=== PATIENT | female | born 1950 | race Caucasian/White ===

== ENCOUNTER 2017-04-08 14:05 | Inpatient (IN) | payer OTHER ==
[~2017-04-08] VITALS: Ht 160 cm; Wt 58.9 kg
[~2017-04-08 14:05] MED LIST: ACET-1311 PO; MEPERIDINE PO; PRED-301 PO; SULF800T23 PO
--- NOTE | 2017-04-08 14:59 | EMERGENCY ROOM VISIT NOTE ---
History Report prepared by Lenin: Opal Ruiz Under the Supervision of: Dr. Keyanna Sandra D.O. First contact with patient: 14:19 Chief Complaint: OTHER COMPLAINT Stated Complaint: PAIN,WEAKNESS,MS,CR CANCER,UNABLE TO EAT History of Present Illness The patient is a 66 year old female who presents to the Emergency Room with complaints of worsening weakness. She reports she has a history of MS and colorectal cancer for the past 2 years ago. She is not currently being treated for the cancer because she states she cannot take chemotherapy because of her history of MS. She states her bowel movements are "messy" and she cannot control her bowels. She has a Wagner catheter in place due to recent issues with incontinence. The patient reports she has been experiencing abdominal and buttock pain recently but states she cannot take PO medications. She admits she has been self-medicating with alcohol. She also complains of a poor appetite and states "it's too hard to swallow". Her reports she was seen at [facility] about 2 months ago and was treated with IV Cipro. The patient is a current smoker. She denies any recent fevers, shortness of breath, chest pain, nausea or vomiting. 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 A total of 10 systems reviewed and were otherwise negative. Past Medical & Surgical Medical Problems: (1) Abdominal pain (2) Colorectal cancer (3) Multiple sclerosis Social History Smoking Status: Current Every Day Smoker Alcohol Use: heavy Drug Use: none Marital Status: Housing Status: lives with family Occupation Status: retired Current/Historical Medications Scheduled Prednisone (Prednisone), 20 MG PO DAILY Sulfa/Trimethoprim (Bactrim Ds 800MG/160MG), 1 TAB PO DAILY Allergies Coded Allergies: Codeine (Verified Allergy, Severe, SWELLING, DIFFICULTY SWALLOWING, ) Milk (Verified Allergy, Severe, CONGESTION,EYE SWELLING, DIFFICULTY SWALLOWING, 04/08/17) Iodinated Diagnostic Agents (Verified Allergy, Intermediate, RASH, ) Iodine (Verified Allergy, Intermediate, RASH, 04/09/17) Penicillins (Verified Allergy, Unknown, UNKNOWN, 04/08/17) Physical Exam Vital Signs Date Time Temp Pulse Resp B/P (MAP) Pulse Ox O2 Delivery O2 Flow Rate FiO2 04/08/17 17:21 125 20 95 Nasal Cannula 2.0 04/08/17 16:42 100 20 95 Room Air 04/08/17 16:35 71 20 130/74 94 Room Air 04/08/17 15:22 94 20 130/65 90 Room Air 04/08/17 15:17 87 04/08/17 14:08 36.4 92 18 124/77 90 Room Air Physical Exam GENERAL: Patient is alert, chronically ill-appearing, smells of ETOH, well nourished, no distress, non-toxic EYE EXAM: normal conjunctiva, PERRL and EOM's grossly intact OROPHARYNX: no exudate, no erythema, lips, buccal mucosa normal, staining on tongue from smoking, poor dentition and mucous membranes are dry NECK: supple, no nuchal rigidity, no adenopathy, non-tender LUNGS: Diminished breath sounds. No wheezes, rhonchi or rails. Normal chest wall mechanics HEART: no murmurs, S1 normal and S2 normal : Patient in adult diaper. Indwelling Wagner catheter noted, no hematuria, cloudy urine with mild sediment. ABDOMEN: abdomen soft, non-tender, normo-active bowel sounds, no masses, no rebound or guarding. BACK: Back is symmetrical on inspection and there is no deformity, no midline tenderness, no CVA tenderness. SKIN: Multiple areas of excoriation noted, no rashes and no bruising UPPER EXTREMITIES: upper extremities are grossly normal. LOWER EXTREMITIES: No pitting edema. NEURO EXAM: Normal sensorium, cranial nerves II-XII grossly intact, normal speech, no gross weakness of arms, no gross weakness of legs. Medical Decision & Procedures ER Provider Diagnostic Interpretation: Radiology results have been interpreted by the radiologist and reviewed by me. ABDOMEN AND PELVIS CT WITHOUT CONTRAST CT DOSE: 263.40 mGy.cm HISTORY: Lower abdominal pain. TECHNIQUE: Multiaxial CT images of the abdomen and pelvis were performed without contrast. A dose lowering technique was utilized adhering to the principles of ALARA. COMPARISON STUDY: None. FINDINGS: The lung bases are clear. No pneumoperitoneum. No pneumatosis. L4-5 posterior decompression and fusion with pedicle screws and rods. No suspicious lytic or blastic osseous lesions. Punctate density within the left hepatic lobe which may represent a small calcification. Hepatic steatosis with an area of focal fat adjacent to the whitney hepatis. Multiple small gallstones and gallbladder sludge. The unenhanced spleen, pancreas, and kidneys are unremarkable. Thickening within the body of the stomach is likely due to underdistention. No retroperitoneal lymphadenopathy. There is a Wagner catheter within the bladder. Small focus of gas within the bladder is likely due to the catheterization. Partially calcified 6.2 cm homogeneous mass within the uterine fundus. This favors a fibroid. Moderate thickening of the rectum with perirectal fat stranding. There are few subcentimeter perirectal lymph nodes. There is also areas of abnormal soft tissue seen extending from the upper vagina to the perirectal space bilaterally. These are best seen on images 69 and 70 and favor engorged vascular structures from the adjacent inflammatory change. Moderate stool seen within the colon. No evidence for bowel obstruction. Normal appendix. An indeterminate 1.5 cm left adrenal gland nodule. Normal right adrenal gland. IMPRESSION: 1. Moderate rectal wall thickening with perirectal fat stranding. This consistent with a nonspecific proctitis. However, given the patient's age follow-up sigmoidoscopy is recommended to exclude the possibility of an underlying rectal mass. There are few subcentimeter perirectal lymph nodes which are nonspecific. 2. No evidence for bowel obstruction. 3. Cholelithiasis. 4. A 6.2 cm partially calcified mass within the uterine fundus. This likely represents a fibroid. 5. Normal appendix. 6. Hepatic steatosis. Electronically signed by: Colten Aceves M.D. 04/08/2017 4:07 PM CHEST ONE VIEW PORTABLE HISTORY: Weakness. Short of breath. COMPARISON: None. FINDINGS: The heart is borderline enlarged. Mild diffuse interstitial thickening which may be chronic. Surgical within the right axilla. No focal lung consolidations to suggest pneumonia. No pleural effusions. No pneumothorax. The lungs are mildly hyperexpanded. IMPRESSION: Mild diffuse interstitial thickening which is likely chronic. No focal lung consolidations to suggest pneumonia. Electronically signed by: Colten Aceves M.D. 04/08/2017 4:24 PM Laboratory Results Test 04/08/17 15:19 Prothrombin Time 9.4 SECONDS (9.0-12.0) Prothromb Time International Ratio 0.9 (0.9-1.1) Lactic Acid Level 1.8 mmol/L (0.4-2.0) Ethyl Alcohol mg/dL 257.0 mg/dl (0-3) Date/Time Source Procedure Growth Status 04/08/17 16:15 Urine,Catheterized Urine Culture - Final THREE TYPES OF ORGANISMS PRESENT, ALL... Complete Laboratory results per my review. Medications Administered Medications (Trade) Dose Ordered Sig/Jacqui Route Start Time Stop Time Status Last Admin Dose Admin Sodium Chloride 1,000 ml @ 999 mls/hr Q1H1M STAT IV 04/08/17 16:11 04/08/17 17:11 DC 04/08/17 16:24 999 MLS/HR Multivitamins 10 ml/Thiamine HCl 100 mg/Folic Acid 1 mg/Sodium Chloride 1,011.2 ml @ 125 mls/ hr Q8H6M IV 04/08/17 17:00 04/08/17 19:41 DC 04/08/17 17:19 125 MLS/HR Nicotine (Nicoderm Cq 21MG Patch) 1 patch STK-MED ONCE .ROUTE 04/08/17 16:51 04/08/17 16:52 DC 04/08/17 17:03 1 PATCH Sodium Chloride 1,000 ml @ 100 mls/hr Q10H IV 04/08/17 17:35 05/08/17 17:34 04/10/17 06:52 100 MLS/HR ECG Indication: weakness Rate (beats per minute): 90 Rhythm: normal sinus Findings: no ectopy, other (normal intervals) ED Course 1446: The patient was evaluated in room A2. A complete history and physical exam was performed. 1611: NSS 1000 ml @ 999 mls/hr IV. 1643: I discussed the patients case with Dr. Sherman, [facility] Hospitalist. The patient will be further evaluated. 1650: I reevaluated the patient. She is resting comfortably. I discussed my recommendation she remain in the hospital for further evaluation and management and she and her family verbalized complete understanding and agreement. 1651: Nicotine 21 mg 1 patch TD. 1700: Multivitamin 1011.2 ml @ 125 mls/hr IV. 0900: Nicotine 21 mg 1 patch TD. Medical Decision Differential Diagnosis includes but is not limited to dehydration, stroke, anemia, hypoglycemia, hyponatremia, hypernatremia, urinary tract infection, pneumonia, bronchitis, sepsis, gastroenteritis, additional abdominal pathology, metabolic abnormalities and infections. Pt with multiple medical problems, noncompliance, alcohol abuse who has previously refused treatment for her colorectal ca stating it would flare up her MS, but family states no second opinion ever sought. VS stable. Abnormal LFT"s and pancreatitis likely from etoh. No evidence of acute abdominal/pelvic pathology given worsening pain. Likely progression of disease. Doubt bacteremia/sepsis, doubt acute vascular etiology. No evidence of sbo, perf. Wagner catheter changed 03/24/17. Culture sent as a precaution. Medication Reconcilliation Current Medication List: was personally reviewed by me Blood Pressure Screening Patient's blood pressure: Normal blood pressure Blood pressure disposition: Did not require urgent referral Consults Time Called: 1640 Consulting Physician: Dr. Sherman, [facility] Hospitalist Returned Call: [phone] I discussed the patients case with Dr. Sherman [facility] Hospitalist. The patient will be further evaluated. Impression Primary Impression: Alcohol intoxication Additional Impressions: Pancreatitis Abnormal LFTs Colorectal cancer Failure to thrive Scribe Attestation The scribe's documentation has been prepared under my direction and personally reviewed by me in its entirety. I confirm that the note above accurately reflects all work, treatment, procedures, and medical decision making performed by me. Departure Information Dispostion Being Evaluated By Hospitalist Referrals Matt Self M.D. (PCP) Patient Instructions My [facility] Problem Qualifiers Primary Impression: Alcohol intoxication Complication of substance-induced condition: uncomplicated Qualified Codes: F10.920 - Alcohol use, unspecified with intoxication, uncomplicated Additional Impressions: Pancreatitis Chronicity: acute Pancreatitis type: alcohol induced Acute pancreatitis complication: no infection or necrosis Qualified Codes: K85.20 - Alcohol induced acute pancreatitis without necrosis or infection Failure to thrive Failure to thrive age range: in adult Qualified Codes: R62.7 - Adult failure to thrive
[2017-04-08 15:32] LABS: BASO % 0.7 %; BASO ABS # 0.05 K/uL (0-0.2); EOS % 0.1 %; EOS ABS # 0.01 K/uL (0-0.5); HEMATOCRIT 34.7 % (37-47); HEMOGLOBIN 11.8 g/dL (12.0-16.0); IG# 0.03 K/uL (0.00-0.02); LYMPH % 5.4 %; LYMPH ABS # 0.41 K/uL (1.2-3.4); MEAN CORPUSCULAR HEMOGLOBIN 33.3 pg (25-34); MONO % 1.6 %; MONO ABS # 0.12 K/uL (0.11-0.59); NEUT % 91.8 %; NEUT ABS # 6.93 K/uL (1.4-6.5); PLATELET COUNT 177 K/uL (130-400); RED CELL DISTRIBUTION WIDTH CV 14.7 % (11.5-14.5); RED CELL DISTRIBUTION WIDTH SD 52.2 fL (36.4-46.3); WHITE BLOOD COUNT 7.55 K/uL (4.8-10.8)
[2017-04-08 15:41] LABS: INR 0.9 (0.9-1.1)
[2017-04-08 15:50] LABS: ALBUMIN 2.9 gm/dl (3.4-5.0); CALCIUM 8.3 mg/dl (8.5-10.1); CREATININE 0.27 mg/dl (0.60-1.20); POTASSIUM 3.3 mmol/L (3.5-5.1)
[2017-04-08 15:52] LABS: TOTAL PROTEIN 6.2 gm/dl (6.4-8.2)
--- NOTE | 2017-04-08 16:08 | DIAGNOSTIC IMAGING REPORT ---
ABDOMEN AND PELVIS CT WITHOUT CONTRAST CT DOSE: 263.40 mGy.cm HISTORY: Lower abdominal pain. TECHNIQUE: Multiaxial CT images of the abdomen and pelvis were performed without contrast. A dose lowering technique was utilized adhering to the principles of ALARA. COMPARISON STUDY: None. FINDINGS: The lung bases are clear. No pneumoperitoneum. No pneumatosis. L4-5 posterior decompression and fusion with pedicle screws and rods. No suspicious lytic or blastic osseous lesions. Punctate density within the left hepatic lobe which may represent a small calcification. Hepatic steatosis with an area of focal fat adjacent to the whitney hepatis. Multiple small gallstones and gallbladder sludge. The unenhanced spleen, pancreas, and kidneys are unremarkable. Thickening within the body of the stomach is likely due to underdistention. No retroperitoneal lymphadenopathy. There is a Wagner catheter within the bladder. Small focus of gas within the bladder is likely due to the catheterization. Partially calcified 6.2 cm homogeneous mass within the uterine fundus. This favors a fibroid. Moderate thickening of the rectum with perirectal fat stranding. There are few subcentimeter perirectal lymph nodes. There is also areas of abnormal soft tissue seen extending from the upper vagina to the perirectal space bilaterally. These are best seen on images 69 and 70 and favor engorged vascular structures from the adjacent inflammatory change. Moderate stool seen within the colon. No evidence for bowel obstruction. Normal appendix. An indeterminate 1.5 cm left adrenal gland nodule. Normal right adrenal gland. IMPRESSION: 1. Moderate rectal wall thickening with perirectal fat stranding. This consistent with a nonspecific proctitis. However, given the patient's age follow-up sigmoidoscopy is recommended to exclude the possibility of an underlying rectal mass. There are few subcentimeter perirectal lymph nodes which are nonspecific. 2. No evidence for bowel obstruction. 3. Cholelithiasis. 4. A 6.2 cm partially calcified mass within the uterine fundus. This likely represents a fibroid. 5. Normal appendix. 6. Hepatic steatosis. Electronically signed by: Colten Aceves M.D. 04/08/2017 4:07 PM Dictated Date/Time: 04/08/2017 3:55 PM
[2017-04-08] MEDS ORDERED: SODIUM CHLORIDE 0.9% 1000ML 1,000 ML IV STA (16:11)
--- NOTE | 2017-04-08 16:26 | DIAGNOSTIC IMAGING REPORT ---
CHEST ONE VIEW PORTABLE HISTORY: Weakness. Short of breath. COMPARISON: None. FINDINGS: The heart is borderline enlarged. Mild diffuse interstitial thickening which may be chronic. Surgical within the right axilla. No focal lung consolidations to suggest pneumonia. No pleural effusions. No pneumothorax. The lungs are mildly hyperexpanded. IMPRESSION: Mild diffuse interstitial thickening which is likely chronic. No focal lung consolidations to suggest pneumonia. Electronically signed by: Colten Aceves M.D. 04/08/2017 4:24 PM Dictated Date/Time: 04/08/2017 4:23 PM
[2017-04-08] MEDS ORDERED: NICOTINE 21 MG/24 HR TDSY ONE (16:51)
[2017-04-08] MEDS ORDERED: MULTI-VITAMIN INFUSION INJ 10 ML, THIAMINE HCL INJ 100 MG, FoLIC ACID INJ 1 MG in SODIU... IV SCH (17:00)
[2017-04-08] MEDS ORDERED: POLYETHYLENE (MIRALAX) 17 GM PACK PO PRN (17:45)
[2017-04-08] MEDS ORDERED: LORAZEPAM 2 MG/ML 1 ML VIAL IV PRN ×2 (17:45)
[2017-04-08] MEDS ORDERED: ALUMINUM/MAGNESIUM/SIMETH (MAALOX MAX) 30 ML UDC PO PRN (17:45)
[2017-04-08] MEDS ORDERED: MAGNESIUM HYDROXIDE SUSP 30 ML UDC PO PRN (17:45)
[2017-04-08] MEDS ORDERED: LORAZEPAM 1 MG TAB PO PRN (17:45)
[2017-04-08] MEDS ORDERED: CHLORDIAZEPOXIDE 25 MG CAP PO SCH (17:45)
[2017-04-08 18:05] VITALS: O2SAT 95; Ht 160 cm; Wt 58.9 kg
--- NOTE | 2017-04-08 18:05 | NUR ---
A/ID: 66 year old female in ED. c/o abdominal pain. lipase 671. LFTs elevated. Possible admission/observation. Admission Assessment done. Code Word/Fall Agreement reviewed with patient and completed. Spouse aware of admission. Continued care in ED by LEELEE Langley.
--- NOTE | 2017-04-08 18:38 | History and Physical ---
History & Physical Date & Time of Service: Apr 08, 2017 at 17:57 Chief Complaint: Pain,Weakness,Ms,Cr Cancer,Unable To Eat Primary Care Physician: Matt Self M.D. 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 progressive for the past few days. patient has been on hospice at home. her and her claimed that they did not know that hospice means not to treat the cancer. They had a miss communication with [facility] that was handling her rectal cancer (chemotherapy/radiation was suggested but patient wanted surgery). her and her now wants to pursu treating her cancer. they think that her lower abd pain is from it. because of her progressive chronic pain she started to drink alcohol every day. today her alcohol level is 257. she has recurrent UTI responding to cipro IV not oral. currently on Bactrim once a day for suppression. also has chronic diarrhea. tremors and currently smoker Social History Smoking Status: Current Every Day Smoker Drug Use: none Marital Status: Occupational Status: retired Immunizations History of Influenza Vaccine: N/A History of Tetanus Vaccine?: Yes History of Pneumococcal: No History of Hepatitis B Vaccine: No Allergies Coded Allergies: Codeine (Verified Allergy, Severe, SWELLING, DIFFICULTY SWALLOWING, ) Milk (Verified Allergy, Severe, CONGESTION,EYE SWELLING, DIFFICULTY SWALLOWING, 04/08/17) Iodine (Unverified Allergy, Intermediate, RASH, 04/08/17) Penicillins (Verified Allergy, Unknown, UNKNOWN, 04/08/17) Uncoded Allergies: CONTRASTMEDIA (Allergy, Intermediate, RASH, 05/22/09) Home Medications Scheduled Prednisone (Prednisone), 20 MG PO DAILY Sulfa/Trimethoprim (Bactrim Ds 800MG/160MG), 1 TAB PO DAILY Review of Systems Constitutional: + weakness, + fatigue, No fever, No chills, No sweats, No weight loss, No problem reported Eyes: No worsening of vision, No eye pain, No redness, No discharge, No diplopia, No problem reported ENT: No hearing loss, No unusual epistaxis, No nasal symptoms, No sore throat, No tinnitus, No dental problems, No trouble swallowing, No problem reported Respiratory: No cough, No sputum, No wheezing, No shortness of breath, No dyspnea on exertion, No dyspnea at rest, No hemoptysis, No problem reported Cardiovascular: No chest pain, No orthopnea, No PND, No edema, No claudication , No palpitations, No problem reported Abdomen: + pain, + diarrhea, No nausea, No vomiting, No constipation, No GI bleeding, No problem reported Musculoskeletal: + joint pain, + muscle pain, + calf pain, No swelling, No problem reported Genitourinary - Female: + problem reported (has a chronic overton), No dysuria, No urinary frequency, No urinary urgency, No urinary incontinence, No urinary retention, No hematuria, No dysmenorrhea, No menorrhagia, No metrorrhagia, No rash, No vaginal bleeding, No vaginal discharge, No vaginal itching, No vulvodynia, No Neurologic: + weakness, + problem reported (MS with lower ext weakness), No memory loss, No paralysis, No numbness/tingling, No vertigo, No balance problems Psychiatric: No depression symptoms, No anhedonism, No anxiety, No insomnia, No substance abuse, No problem reported Endocrine: No fatigue, No excessive thirst, No excessive urination, No problem reported Hematologic / Lymphatic: No abnormal bleeding/bruising, No clotting problems, No swollen lymph nodes, No night sweats, No problem reported Integumentary: + rash, No itch, No new/changing skin lesions, No color change, No bleeding, No problem reported Allergic / Immunologic: No environmental allergies, No seasonal allergies, No pet sensitivities, No food allergies, No hives, No frequent infections, No poor healing, No prolonged convalescence, No problem reported Physical Exam Vital Signs Date Time Temp Pulse Resp B/P (MAP) Pulse Ox O2 Delivery O2 Flow Rate FiO2 04/08/17 17:21 125 20 95 Nasal Cannula 2.0 04/08/17 16:42 100 20 95 Room Air 04/08/17 16:35 71 20 130/74 94 Room Air 04/08/17 15:22 94 20 130/65 90 Room Air 04/08/17 15:17 87 04/08/17 14:08 36.4 92 18 124/77 90 Room Air General Appearance: + mild distress Head: normocephalic, atraumatic Eyes: normal inspection, EOMI ENT: normal ENT inspection, hearing grossly normal Neck: supple Respiratory/Chest: chest non-tender, lungs clear, normal breath sounds, no respiratory distress, no accessory muscle use Cardiovascular: regular rate, rhythm, no edema, no gallop, no JVD, no murmur, normal peripheral pulses Abdomen/GI: normal bowel sounds, soft, no organomegaly, no pulsatile mass, + tenderness Back: normal inspection Extremities/Musculoskelatal: no pedal edema, + pertinent finding (muscle waisting in lower ext) 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: 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, no motor/sensory deficits, alert, normal mood/affect, normal reflexes, oriented x 3 Skin: normal color, + rash (itching markers) Diagnostics Laboratory Results Results Past 24 Hours Test 04/08/17 15:19 04/08/17 17:35 Range/Units White Blood Count 7.55 4.8-10.8 K/uL Red Blood Count 3.54 4.2-5.4 M/uL Hemoglobin 11.8 12.0-16.0 g/dL Hematocrit 34.7 37-47 % Mean Corpuscular Volume 98.0 80-100 fL Mean Corpuscular Hemoglobin 33.3 25-34 pg Mean Corpuscular Hemoglobin Concent 34.0 32-36 g/dl Platelet Count 177 130-400 K/uL Mean Platelet Volume 9.0 7.4-10.4 fL Neutrophils (%) (Auto) 91.8 % Lymphocytes (%) (Auto) 5.4 % Monocytes (%) (Auto) 1.6 % Eosinophils (%) (Auto) 0.1 % Basophils (%) (Auto) 0.7 % Neutrophils # (Auto) 6.93 1.4-6.5 K/uL Lymphocytes # (Auto) 0.41 1.2-3.4 K/uL Monocytes # (Auto) 0.12 0.11-0.59 K/uL Eosinophils # (Auto) 0.01 0-0.5 K/uL Basophils # (Auto) 0.05 0-0.2 K/uL RDW Standard Deviation 52.2 36.4-46.3 fL RDW Coefficient of Variation 14.7 11.5-14.5 % Immature Granulocyte % (Auto) 0.4 % Immature Granulocyte # (Auto) 0.03 0.00-0.02 K/uL Prothrombin Time 9.4 9.0-12.0 SECONDS Prothromb Time International Ratio 0.9 0.9-1.1 Sodium Level 132 136-145 mmol/L Potassium Level 3.3 3.5-5.1 mmol/L Chloride Level 98 98-107 mmol/L Carbon Dioxide Level 27 21-32 mmol/L Anion Gap 7.0 3-11 mmol/L Blood Urea Nitrogen 6 7-18 mg/dl Creatinine 0.27 0.60-1.20 mg/dl Est Creatinine Clear Calc Drug Dose 164.9 ml/min Estimated GFR () 141.2 Estimated GFR (Non- 121.8 BUN/Creatinine Ratio 23.5 10-20 Random Glucose 91 70-99 mg/dl Lactic Acid Level 1.8 0.4-2.0 mmol/L Calcium Level 8.3 8.5-10.1 mg/dl Magnesium Level 2.0 1.8-2.4 mg/dl Total Bilirubin 0.6 0.2-1 mg/dl Aspartate Amino Transf (AST/SGOT) 177 15-37 U/L Alanine Aminotransferase (ALT/SGPT) 145 12-78 U/L Alkaline Phosphatase 143 45-117 U/L Total Protein 6.2 6.4-8.2 gm/dl Albumin 2.9 3.4-5.0 gm/dl Globulin 3.3 2.5-4.0 gm/dl Albumin/Globulin Ratio 0.9 0.9-2 Lipase 671 73-393 U/L Ethyl Alcohol mg/dL 257.0 0-3 mg/dl Microbiology Results 04/08/17 Urine Culture, Received Pending Impression Assessment and Plan 66 years old female with MS, lower back pain, 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 Assessment: lower abdominal pain,likely related to her untreated rectal cancer alcoholic hepatitis elevated lipase, likely alcoholic chronic pancreatitis, no acute epigastric pain Chronic diarrhea, likely combination of rectal cancer/chronic pancreatitis and pancreatic insufficiency alcohol abuse chronic pain advanced MS on chronic prednisone bladder retention S/P indwelling overton catheter recurrent complicated UTI on chronic bactrim suppression Plan: Admit to telemetry pain management Banana bag Alcohol withdrawal protocol Ativan when necessary Recheck liver enzymes/diabetes in a.m. Obtain stool study, including, culture and sensitivity, ova and parasite, Giardia, cryptosporidium, microsporidia, white blood cell, and Hemoccults As per patient wishes, will consult GI to initiate workup and management for her rectal cancer, patient is willing to pursue treating rectal cancer, As per , they did not know that hospice means not treating the cancer, if hospice means no treatment for the cancer then they will provoke hospice Oncologist can be consulted on Monday when the patient is stabilized Despite of chronic alcohol use, platelet count is adequate to initiate pharmacologic DVT prophylaxis Consult PT/OT, despite of MS patient used to be able to use a walker until 3 weeks ago Urine analysis was sent, no fever no leukocytosis no stigmata of UTI, some white blood cell count in urine is expected from chronic Overton but if it was highly suspicious for infection then it might explain the lower abdominal pain Resuscitation Status DO NOT RESUSCITATE VTE Prophylaxis VTE Risk Assessment Done? Y/N: Yes Risk Level: Moderate Given or contraindicated: Enoxaparin (Lovenox)SQ
[2017-04-08 19:44] VITALS: BP 181/69; PULSE 100; TEMP 36.5; O2SAT 94
--- NOTE | 2017-04-08 20:00 | NUR ---
A: Arrived to room 278-2 from the ED at 1940. Assessed and oriented to the room. quality assurance monitor chassis applied. Monitor shows sinus rhythm. Bed alarm placed on bed. Incontinent of stool. Cleansed and moisture barrier ointment applied. Right buttock excoriated. Also multiple scabs on abdomen and legs especially left leg. Will place consult to [facility]. Tremors noted.
[2017-04-08] MEDS: CHLORDIAZEPOXIDE 25MG 1ST DOSE PO SCH (20:04)
[2017-04-08] MEDS: OXYCODONE HCL IR 5 MG TAB (IMMEDIATE RELEASE) PO PRN (20:05)
[2017-04-08] MEDS ORDERED: MULTI-VITAMIN INFUSION INJ 10 ML, THIAMINE HCL INJ 100 MG, FoLIC ACID INJ 1 MG in SODIU... IV ONE (20:30)
[2017-04-08 20:48] VITALS: BP 155/77; PULSE 89
[2017-04-08] MEDS: ENOXAPARIN 40 MG/0.4 ML SYR SC SCH (20:49)
[2017-04-08] MEDS: SODIUM CHLORIDE 0.9% 1000ML 1,000 ML IV SCH (20:50)
[2017-04-08] MEDS: LORAZEPAM INJ 1 MG in SYRINGE 0.5 ML IV PRN (23:40)
[2017-04-08 23:47] VITALS: BP 148/73; PULSE 92; TEMP 36.6; O2SAT 94
--- NOTE | 2017-04-08 23:50 | NUR ---
A: Physician made aware of AWSS scale of 7 per eMAR order. Per Dr. Werner reassess AWSS in an hour, may administer additional Ativan 1mg IV if score > 6. Patient has scattered circular covington/wounds on her abdomen and upper thigh, MD made aware, patient is a current everyday smoker.
[2017-04-09] VITALS (7 sets, daily range): BP systolic 109–160; BP diastolic 67–84; PULSE 83–98; TEMP 36.4–36.8; O2SAT 91–100
--- NOTE | 2017-04-09 | NUR ---
A: Patient resting in bed. Intermittent confusion. Reoriented easily. Moderate Bilateral arm tremors noted. Moderate perspiration noted. Patient states her last drink was this morning, she drinks beer on a daily basis to treat her pain. She notes that she has chronic rectal pain but declines medication at this time. Wagner catheter patient draining concentrated yellow. Incontinent of stool. Stool sample collected. VSS on 2L [place]. NSR on monitor. See EMR for full assessment. Bed alarm in place for safety HS. Q1 hour rounding maintained. Call wynn within reach. Will continue to monitor.
[2017-04-09] MEDS: CHLORDIAZEPOXIDE 25MG 1ST DOSE PO SCH ×3 (01:32→14:16)
--- NOTE | 2017-04-09 04:00 | NUR ---
A: Patient remains resting in bed. No signs of anxiety at this time. Int. confusion continues. B/L arm tremors have improved. C/O getting hot and cold. Denies hallucinations. VSS on 2L. NSR on monitor. Call wynn within reach.
[2017-04-09 05:41] LABS: BASO % 0.3 %; BASO ABS # 0.03 K/uL (0-0.2); HEMATOCRIT 33.2 % (37-47); HEMOGLOBIN 10.9 g/dL (12.0-16.0); IG# 0.02 K/uL (0.00-0.02); LYMPH % 5.5 %; LYMPH ABS # 0.54 K/uL (1.2-3.4); MEAN CORPUSCULAR HEMOGLOBIN 32.8 pg (25-34); MEAN CORPUSCULAR HGB CONC 32.8 g/dl (32-36); MEAN PLATELET VOLUME 9.3 fL (7.4-10.4); MONO % 8.1 %; MONO ABS # 0.79 K/uL (0.11-0.59); NEUT % 85.9 %; NEUT ABS # 8.42 K/uL (1.4-6.5); PLATELET COUNT 175 K/uL (130-400); RED CELL DISTRIBUTION WIDTH CV 15.1 % (11.5-14.5); RED CELL DISTRIBUTION WIDTH SD 54.5 fL (36.4-46.3)
[2017-04-09 06:21] LABS: ALBUMIN 2.5 gm/dl (3.4-5.0); ALT/SGPT 112 U/L (12-78); AST/SGOT 112 U/L (15-37); BLOOD UREA NITROGEN 5 mg/dl (7-18); CARBON DIOXIDE 25 mmol/L (21-32); CREATININE 0.19 mg/dl (0.60-1.20); GLUCOSE 77 mg/dl (70-99); LIPASE 313 U/L (73-393); POTASSIUM 2.9 mmol/L (3.5-5.1); SODIUM 134 mmol/L (136-145)
[2017-04-09 06:24] LABS: ALKALINE PHOSPHATASE 136 U/L (45-117); TOTAL PROTEIN 5.5 gm/dl (6.4-8.2)
--- NOTE | 2017-04-09 07:21 | Family Medicine Progress Note ---
Progress Note Date of Service Apr 09, 2017. Subjective Pt evaluation today including: conversation w/ patient, physical exam, chart review, lab review The patient was seen and examined at bedside. No acute overnight events. Telemetry showed sinus rhythm in the 80s and 100s. Patient is resting comfortably in bed with overton in place. States that her abdominal pain is well controlled. Eating and urinating well. I spoke with the patient extensively about hospice care and what it entails - she confirms with me that she does not want surgery, radiation or chemotherapy for her cancer and does not want to speak with an oncologist. She denies SI or HI. Update: I returned to the room with the present. Hospice care was confirmed. Patient admits that when she leaves she will drink alcohol and would like a beer as inpatient. and both confirm that there was a path diagnosis for her cancer. Both confirm they do not want treatment for cancer. Plan of care was described to the patient and all questions were answered. Constitutional: No fever, No chills, No sweats Respiratory: No cough, No sputum, No wheezing, No shortness of breath Cardiovascular: No chest pain Abdomen: + diarrhea, No nausea, No vomiting, No constipation Skin: No rash Objective Physical Exam General Appearance: WD/WN Eyes: PERRL, EOMI ENT: + pertinent finding (black tongue with needlike projections) Neck: supple Respiratory/Chest: chest non-tender, lungs clear, normal breath sounds, no respiratory distress, no accessory muscle use Cardiovascular: regular rate, rhythm, no edema, no gallop, no JVD, no murmur Abdomen: normal bowel sounds, soft, + hepatomegaly (and tender in the RUQ to deep palpation) Extremities: normal range of motion, normal inspection, no pedal edema, no calf tenderness 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 She is on hospice but without services. Pain has resolved on current regimen. She is on Prednisone for MS, Bactrim (on chronically as outpatient). She confirmed her desired x 2 to be on hospice. present in the room. Abdominal Pain (resolved) 2/2 to ?cancer, constipation, UTI vs Proctitis (seen on CT) Pt is afebrile, with excellent heart rate and good pressures, not appearing septic. UA was dirty despite being taken from overton bag. Repeat UA. Urine could also be incredibly contaminated. 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 Has had 3 loose BM since admission. Oxycodone 5mg Q6H for pain control. Alcoholism Patient does not want to go through withdrawal, she admits that she will continue drinking in the hospital. 2 beers stat, 1 beer Q4 PRN for agitation. Colon Cancer (Hospice) Patient confirmed hospice status twice independently today. Patient does not want to be treated, has seen Dr. Monterroso in the past who she states confirmed the diagnosis with biopsy. She is on hospice but has no home service, this is a point of contention with patient and . Palliative care and discharge planning consult. Patient specifically declined an Oncology or GI consult. Chronic UTIs 2/2 Chronic Indwelling Overton Catheter. We need to find out when the overton was last changes. UA showed contaminate which is odd because it was drawn from the overton. She is on Bactrim at home which we are continuing. Will repeat UA. Consider Broadening Abx if symptoms worsen. Multiple Sclerosis Continue 20mg daily Prednisone. Patient used a walker up until 3 weeks ago. Dispo: Med Surg, lives with who has ESRD, apparently on home hospice but not getting any home services. Diet: Regular diet, supplement with Boost as patients liesure, she wants Gatorade as well. DVT Proph: Lovenox Daily SQ DNR - confirm this twice with patient, alone and with in the room. Resident Physician Supervision Note: I was present with PGY2 Dr. Colten Inman during the history and exam. I discussed the case with the resident and agree with the findings and plan as documented in the note. Any exceptions or clarifications are listed here: none. Pt confirmed during our bedside rounds the following - 1) DNR status 2) wishes to continue drinking alcohol 3) NO TREATMENT for her biopsy-confirmed rectal cancer Her abdominal pain was improved today. VSS no fever gen - shaky/tremors, but awake/alert/oriented x 3; looks older than stated age mouth - MMM heart - RRR, s1, s2 lungs - CTA b/l abd - mild hepatomegaly, BS+, soft, scantly tender RUQ ext - no edema A/P: 1. steroid-dependent MS with chronic overton catheter usage 2. rectal cancer - declines treatment 3. early but active etoh withdrawal 4. abdominal pain - improved; suspect due to cancer; cannot r/o UTI, cannot r/ o gastritis; lipase minimally elevated but doubt any pancreatitis 5. abnormal LFTs likely due to alcoholism 6. hypokalemia ativan prn allow beer prn given her repeated desire for hospice and desire to continue drinking etoh replete K PPI once daily formal palliative care consult on Monday dispo - home w/ hospice ok to place on med/surg Documented By: Darwin Yanez MD Resident Involvement: Resident Care Provided Care Provided: Adult Hospital Medicine
[2017-04-09] MEDS: SODIUM CHLORIDE 0.9% 1000ML 1,000 ML IV SCH ×3 (07:47→20:25)
[2017-04-09] MEDS: SULFAMETHOXAZOLE/TRIMETHOPRIM DS 800/160MG TAB PO SCH (07:47)
[2017-04-09] MEDS: LORAZEPAM INJ 1 MG in SYRINGE 0.5 ML IV PRN (07:52)
--- NOTE | 2017-04-09 08:00 | NUR ---
A: Patient alert and oriented x 4. Forgetful at times. No complaints of pain. sitting in chair. Tremors noted, restless, anxious. Dose of PRN ativan called for. notified of Low K level this AM. NSR on monitor. See EMR for full head to toe assessment. will continue to monitor.
[2017-04-09] MEDS ORDERED: POTASSIUM CHLORIDE 10 MEQ TABCR PO ONE (08:15)
[2017-04-09] MEDS: POTASSIUM CHLR 10 MEQ / WTR 10 MEQ in PREMIXED WATER 100 ML IV SCH ×2 (08:25→09:12)
[2017-04-09] MEDS ORDERED: NICOTINE 21 MG/24 HR TDSY TD SCH (09:00)
[2017-04-09] MEDS: POTASSIUM CHLORIDE 10 MEQ TABCR PO SCH ×2 (11:44→20:48)
--- NOTE | 2017-04-09 12:00 | NUR ---
A: Assessment unchanged. See EMR.
--- NOTE | 2017-04-09 12:17 | NUR ---
RD received WOCN notification and trigger for difficulty chewing/swallowing, refer to linked note for full assessment and recommendations. Addendum: 04/09/17 at [address] Amended: Links added. Addendum: 04/09/17 at [address] RD received MD consult for Boost Plus ACHS PRN, Hospice pt and she likes occasional Boost Plus, order w/out RD order writing protocol.
[2017-04-09] MEDS ORDERED: BOOST PLUS VANILLA OR BOOST GLUCOSE CONTROL STRAWBERRY PO PRN (14:15)
[2017-04-09] MEDS ORDERED: BEER 1 CAN PO ONE (14:15)
--- NOTE | 2017-04-09 16:00 | NUR ---
A: patient arrived on floor via bed. Assessment obtained. Safety reviewed with patient. call wynn within reach. will continue to monitor.
[2017-04-09] MEDS ORDERED: PANTOprazole SOD 40 MG TAB PO STA (17:37)
[2017-04-09] MEDS: ENOXAPARIN 40 MG/0.4 ML SYR SC SCH (20:49)
[2017-04-09] MEDS: CHLORDIAZEPOXIDE 25MG Q8H DOSE PO SCH (22:54)
[2017-04-10] MEDS: OXYCODONE HCL IR 5 MG TAB (IMMEDIATE RELEASE) PO PRN ×4 (00:51→19:58)
[2017-04-10] MEDS: CHLORDIAZEPOXIDE 25MG Q8H DOSE PO SCH ×2 (05:43→14:09)
[2017-04-10] MEDS: BEER 1 CAN PO PRN ×4 (06:27→21:31)
[2017-04-10 06:32] LABS: BLOOD UREA NITROGEN 3 mg/dl (7-18); CALCIUM 8.6 mg/dl (8.5-10.1); CARBON DIOXIDE 27 mmol/L (21-32); CREATININE 0.19 mg/dl (0.60-1.20); GLUCOSE 89 mg/dl (70-99); POTASSIUM 3.1 mmol/L (3.5-5.1); SODIUM 136 mmol/L (136-145)
[2017-04-10] MEDS: SODIUM CHLORIDE 0.9% 1000ML 1,000 ML IV SCH ×2 (06:52→21:06)
[2017-04-10 07:23] VITALS: BP 153/83; PULSE 81; TEMP 36.6; O2SAT 99
[2017-04-10 07:45] LABS: HEMOGLOBIN A1C 4.8 % (4.5-5.6)
[2017-04-10 08:45] LABS: BASO % 0.3 %; BASO ABS # 0.02 K/uL (0-0.2); EOS ABS # 0.07 K/uL (0-0.5); HEMATOCRIT 33.5 % (37-47); HEMOGLOBIN 11.1 g/dL (12.0-16.0); IG# 0.02 K/uL (0.00-0.02); LYMPH % 7.1 %; LYMPH ABS # 0.49 K/uL (1.2-3.4); MEAN CELL VOLUME 100.6 fL (80-100); MEAN CORPUSCULAR HEMOGLOBIN 33.3 pg (25-34); MEAN CORPUSCULAR HGB CONC 33.1 g/dl (32-36); MEAN PLATELET VOLUME 9.5 fL (7.4-10.4); MONO % 11.7 %; MONO ABS # 0.81 K/uL (0.11-0.59); NEUT % 79.6 %; NEUT ABS # 5.53 K/uL (1.4-6.5); PLATELET COUNT 219 K/uL (130-400); RED CELL DISTRIBUTION WIDTH CV 15.1 % (11.5-14.5); RED CELL DISTRIBUTION WIDTH SD 54.9 fL (36.4-46.3); WHITE BLOOD COUNT 6.94 K/uL (4.8-10.8)
--- NOTE | 2017-04-10 09:13 | NUR ---
case management note. social service for D/C planning. met with pt at bedside. pt is A&O and states she lives with her in a 1 story house with 0 MELISSA. She is independent with ambulation but states she has a walker with a seat at home. She states she needs help with bathing and dressing and her or an aide assists her. She states she has an aide most days but is not sure of the exact schedule. She states her aide is from [facility]. She states she was open with [facility] hospice previously but is not currently active with this agency. 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 pt states she is planning to return home but she is unsure of what services she would need or want. per the physician note pt and her were confused about what hospice meant and have decided they want treatment for pts rectal cancer but pt states she may want hospice services again. a palliative consult has been ordered. pt would like for palliative VASCULAR PHYSICIAN to meet with her and her before making any decisions. she is aware VASCULAR PHYSICIAN is not here today and will meet with her and her tomorrow. case management to follow.
[2017-04-10] MEDS: POTASSIUM CHLORIDE 10 MEQ TABCR PO SCH ×2 (10:12→19:48)
[2017-04-10] MEDS: PANTOprazole SOD 40 MG TAB PO SCH (10:12)
[2017-04-10] MEDS: SULFAMETHOXAZOLE/TRIMETHOPRIM DS 800/160MG TAB PO SCH (10:13)
[2017-04-10] MEDS ORDERED: POTASSIUM PHOS 3 MMOL/1 ML INFUSION IV STA (10:38)
[2017-04-10] MEDS ORDERED: POTASSIUM CHLORIDE 20 MEQ TABCR PO STA (10:38)
[2017-04-10] MEDS ORDERED: POTASSIUM PHOSPHATE INJ 21 MMOL in SODIUM CHLORIDE 0.9% 500ML 500 ML IV ONE (11:00)
[2017-04-10 11:45] VITALS: BP 161/84; PULSE 85; O2SAT 97
--- NOTE | 2017-04-10 13:33 | Family Medicine Progress Note ---
Progress Note Date of Service Apr 10, 2017. Subjective Pt evaluation today including: conversation w/ patient, conversation w/ family , physical exam, chart review, lab review, review of studies, review of inpatient medication list Pain: denies PO Intake: adequate Voiding: overton catheter in place No acute events overnight. Abdominal pain resolved with pain medication. no reported withdrawal symptoms. + Bowel movements. She denies CP, Palpitation, SOB , N/V Constitutional: No fever, No chills, No weakness Respiratory: No cough, No sputum, No shortness of breath Cardiovascular: No chest pain, No edema, No palpitations Abdomen: No pain, No nausea, No vomiting Female : + problem reported (overton in place) Skin: No rash, No itch Medications Current Inpatient Medications Medications (Trade) Dose Ordered Sig/Jacqui Route Start Time Stop Time Status Last Admin Dose Admin Enoxaparin Sodium (Lovenox Inj) 40 mg Q24H SC 04/08/17 21:00 05/08/17 20:59 04/09/17 20:49 40 MG Sodium Chloride 1,000 ml @ 100 mls/hr Q10H IV 04/08/17 17:35 05/08/17 17:34 04/10/17 06:52 100 MLS/HR Al Hydrox/Mg Hydrox/Simethicone (Maalox Max Susp) 15 ml Q4H PRN PO 04/08/17 17:45 05/08/17 17:44 Magnesium Hydroxide (Milk Of Magnesia Susp) 30 ml Q12H PRN PO 04/08/17 17:45 05/08/17 17:44 Zolpidem Tartrate (Ambien Tab) 5 mg HSZ PRN PO 04/08/17 17:45 05/08/17 17:44 Polyethylene (Miralax Powder Packet) 17 gm DAILY PRN PO 04/08/17 17:45 05/08/17 17:44 Prednisone (PredniSONE TAB) 20 mg DAILY PO 04/09/17 09:00 05/09/17 08:59 04/10/17 10:12 20 MG Trimethoprim/ Sulfamethoxazole (Septra Ds 800/ 160MG Tab) 1 tab DAILY PO 04/09/17 09:00 04/19/17 08:59 04/10/17 10:13 1 TAB Lorazepam (Ativan Tab) 1 mg ONE PRN PO 04/08/17 17:45 Lorazepam (Ativan Inj) 1 mg ONE PRN IV 04/08/17 17:45 Oxycodone HCl (Roxicodone Immediate Rel Tab) 5 mg Q6H PRN PO 04/08/17 18:30 04/22/17 18:29 04/10/17 11:29 5 MG Chlordiazepoxide (Librium Cap) 25 mg Q8H PO 04/09/17 22:00 04/10/17 14:01 04/10/17 05:43 25 MG Chlordiazepoxide (Librium Cap) 10 mg Q8H PO 04/10/17 22:00 04/11/17 14:01 Chlordiazepoxide (Librium Cap) 5 mg Q12H PO 04/12/17 02:00 04/12/17 14:01 Lorazepam 1 mg/ Syringe 1 ml @ 1 mls/min UD PRN IV 04/08/17 23:30 05/08/17 23:29 04/09/17 07:52 1 MLS/MIN Potassium Chloride (Klor-Con M10) 10 meq BID PO 04/09/17 12:00 05/09/17 11:59 04/10/17 10:12 10 MEQ Non-Formulary Medication (Beer) 1 can Q4 PRN PO 04/09/17 14:15 05/09/17 14:14 04/10/17 11:37 1 CAN Enteral Nutritional Formula (Boost Plus Vanilla) 1 can ACHS PRN PO 04/09/17 14:15 05/09/17 14:14 04/09/17 14:24 1 CAN Pantoprazole Sodium (Protonix Tab) 40 mg QAM PO 04/10/17 08:00 05/10/17 07:59 04/10/17 10:12 40 MG Potassium Phosphate 21 mmol/ Sodium Chloride 507 ml @ 88 mls/hr TODAY@1100 ONCE IV 04/10/17 11:00 04/10/17 16:45 04/10/17 11:32 88 MLS/HR Objective Vital Signs Date Time Temp Pulse Resp B/P (MAP) Pulse Ox O2 Delivery O2 Flow Rate FiO2 04/10/17 11:45 85 20 161/84 (109) 97 Nasal Cannula 2.0 04/10/17 07:23 36.6 81 16 153/83 (106) 99 Nasal Cannula 2.0 04/10/17 00:00 Nasal Cannula 2.0 04/09/17 23:47 36.4 98 18 160/84 (109) 99 Nasal Cannula 2.0 04/09/17 20:00 Nasal Cannula 2.0 04/09/17 16:28 95 Nasal Cannula 2.0 04/09/17 15:59 36.8 83 144/77 (99) 95 Nasal Cannula 2.0 04/09/17 15:38 36.4 93 20 109/67 (81) 100 Nasal Cannula 2.0 Physical Exam Notes: GENERAL: alert, NAD EYE EXAM: normal conjunctiva, PERRL and EOM's grossly intact OROPHARYNX: no exudate, no erythema, lips, buccal mucosa, Hairy tongue LUNGS: Clear to auscultation. Normal chest wall mechanics HEART: Systolic murmur, S1 normal and S2 normal ABDOMEN: abdomen soft, non-tender, normo-active bowel sounds, no masses, no rebound or guarding. LOWER EXTREMITIES: No pitting edema. NEURO EXAM: AOx3, cranial nerves II-XII grossly intact Laboratory Results Results Past 24 Hours Test 04/10/17 05:38 04/10/17 07:47 04/10/17 22:33 Range/Units Sodium Level 136 136-145 mmol/L Potassium Level 3.1 3.5-5.1 mmol/L Chloride Level 103 98-107 mmol/L Carbon Dioxide Level 27 21-32 mmol/L Anion Gap 6.0 3-11 mmol/L Blood Urea Nitrogen 3 7-18 mg/dl Creatinine 0.19 0.60-1.20 mg/dl Est Creatinine Clear Calc Drug Dose 234.4 ml/min Estimated GFR () > 150.0 Estimated GFR (Non- 136.7 BUN/Creatinine Ratio 18.9 10-20 Random Glucose 89 70-99 mg/dl Calcium Level 8.6 8.5-10.1 mg/dl Magnesium Level 1.8 1.8-2.4 mg/dl White Blood Count 6.94 4.8-10.8 K/uL Red Blood Count 3.33 4.2-5.4 M/uL Hemoglobin 11.1 12.0-16.0 g/dL Hematocrit 33.5 37-47 % Mean Corpuscular Volume 100.6 80-100 fL Mean Corpuscular Hemoglobin 33.3 25-34 pg Mean Corpuscular Hemoglobin Concent 33.1 32-36 g/dl Platelet Count 219 130-400 K/uL Mean Platelet Volume 9.5 7.4-10.4 fL Neutrophils (%) (Auto) 79.6 % Lymphocytes (%) (Auto) 7.1 % Monocytes (%) (Auto) 11.7 % Eosinophils (%) (Auto) 1.0 % Basophils (%) (Auto) 0.3 % Neutrophils # (Auto) 5.53 1.4-6.5 K/uL Lymphocytes # (Auto) 0.49 1.2-3.4 K/uL Monocytes # (Auto) 0.81 0.11-0.59 K/uL Eosinophils # (Auto) 0.07 0-0.5 K/uL Basophils # (Auto) 0.02 0-0.2 K/uL RDW Standard Deviation 54.9 36.4-46.3 fL RDW Coefficient of Variation 15.1 11.5-14.5 % Immature Granulocyte % (Auto) 0.3 % Immature Granulocyte # (Auto) 0.02 0.00-0.02 K/uL Phosphorus Level 2.0 2.5-4.9 mg/dl Urine Color YELLOW Urine Appearance TURBID CLEAR Urine pH 8.0 4.5-7.5 Urine Specific [place] 1.009 1.000-1.030 Urine Protein NEG NEG Urine Glucose (UA) NEG NEG Urine Ketones NEG NEG Urine Occult Blood 1+ NEG Urine Nitrite POS NEG Urine Bilirubin NEG NEG Urine Urobilinogen NEG NEG Urine Leukocyte Esterase LARGE NEG Urine WBC (Auto) >30 0-5 /hpf Urine RBC (Auto) 0-4 0-4 /hpf Urine Hyaline Casts (Auto) 1-5 0-5 /lpf Urine Epithelial Cells (Auto) >30 0-5 /lpf Urine Bacteria (Auto) 2+ NEG Urine Yeast (Auto) . NONE PRSENT Microbiology Results 04/10/17 Urine Culture, Received Pending Assessment and Plan 66 yo F w/ Multiple Sclerosis, Rectal Cancer, Alcohol abuse, Chronic indwelling on long-term abx for chronic uti presenting with abdominal pain likely secondary to malignancy Abdominal Pain * likely secondary to malignancy * Pain controlled w/ Oxycodone * passing stool Alcoholism * Continue PRN beer * patient refuses to reduce alcohol intake on d/c Hairy Tongue * secondary to poor dental hygiene * Start dental care in house Rectal Cancer * no treating of cancer at this time * Palliative Care consulted * patient/family to decide on home hospice on d/c Chronic UTI/Chronic Overton catheter * Continue Bactrim Multiple Sclerosis * Continue Prednisone 20 mg daily Hypokalemia, Hypophosphatemia * K Phos supplemtation * F/u electrolytes in AM DVT Prophylaxis * Lovenox Elevated LFT's * Downward trend in general * Continue to monitor * Repeat in AM Disposition * Patient to decide on Home Hospice Resident Physician Supervision Note: I was present with PGY2 Dr. Yosi Duvall during the history and exam. I discussed the case with the resident and agree with the findings and plan as documented in the note. Any exceptions or clarifications are listed here: none. During my rounds today the patient again confirmed she does NOT want Rx for rectal cancer and wants to return home with hospice. She is more comfortable today and denies any abd pain. VSS no fever gen - tremors improved from yesterday's exam; a/o mouth - MMM heart - RRR, s1, s2 lungs - CTA b/l abd - mild hepatomegaly, BS+, soft, NT today ext - no edema A/P: 1. steroid-dependent MS with chronic overton catheter usage; cont bactrim for UTI prophylaxis 2. rectal cancer - declines treatment 3. mild etoh withdrawal but patient has no interest in stopping alcohol use; thus, beer ordered for patient; she remains on librium as well 4. abdominal pain - improved; suspect due to cancer; cannot r/o UTI, cannot r/ o gastritis; lipase minimally elevated but doubt any pancreatitis; patient remains on PPI 5. abnormal LFTs likely due to alcoholism; repeat LFTs in am to ensure normalization 6. hypokalemia - ongoing; replace, repeat BMP in am; mag was normal today palliative care consult tomorrow PT, OT to help with dispo planning pain control for rectal pain as needed Documented By: Darwin Yanez MD Discharge planning: home with Hospice Resident Tracking Resident Involvement: Resident Care Provided Care Provided: Adult [facility] Medicine
[2017-04-10 14:13] VITALS: O2SAT 95
--- NOTE | 2017-04-10 14:14 | NUR ---
A: patient O2 on room air 94-95%. call wynn within reach. Will continue to monitor.
[2017-04-10 14:45] VITALS: O2SAT 95
[2017-04-10 15:43] VITALS: BP 146/79; PULSE 84; TEMP 36.4; O2SAT 93
[2017-04-10] MEDS ORDERED: OXYCODONE HCL IR 5 MG TAB (IMMEDIATE RELEASE) PO STA (18:29)
--- NOTE | 2017-04-10 18:45 | NUR ---
A: Pt c/o 8 rectal pain. Given prn pain medication w/o relief. Pt states her pain continues to be 8/10. made aware and new orders obtained. Pt now states her pain is getting better at 6/10 and refuses need for further pain medication at this time. x1 dose of extra pain medication non-administered. Will continue to monitor. Addendum: 04/10/17 at 2025 by Elisa Cha RN Pt awoke from resting and expressed need for further pain med, c/o 10/24 rectal pain. Addition 5mg x1 dose now administered. Will continue to monitor.
[2017-04-10] MEDS: CHLORDIAZEPOXIDE 10MG Q8H DOSE PO SCH (21:20)
[2017-04-10] MEDS: ENOXAPARIN 40 MG/0.4 ML SYR SC SCH (21:20)
[2017-04-10 22:58] VITALS: BP 155/85; PULSE 92; TEMP 36.3; O2SAT 98
[2017-04-11] MEDS: CHLORDIAZEPOXIDE 10MG Q8H DOSE PO SCH ×2 (05:56→15:12)
[2017-04-11] MEDS: SODIUM CHLORIDE 0.9% 1000ML 1,000 ML IV SCH ×2 (05:57→16:00)
[2017-04-11 07:07] LABS: BASO % 0.5 %; BASO ABS # 0.03 K/uL (0-0.2); EOS % 1.4 %; EOS ABS # 0.09 K/uL (0-0.5); HEMATOCRIT 35.2 % (37-47); HEMOGLOBIN 11.4 g/dL (12.0-16.0); IG# 0.02 K/uL (0.00-0.02); LYMPH ABS # 0.69 K/uL (1.2-3.4); MEAN CORPUSCULAR HEMOGLOBIN 32.4 pg (25-34); MEAN CORPUSCULAR HGB CONC 32.4 g/dl (32-36); MEAN PLATELET VOLUME 9.5 fL (7.4-10.4); MONO % 17.3 %; MONO ABS # 1.09 K/uL (0.11-0.59); NEUT % 69.5 %; NEUT ABS # 4.37 K/uL (1.4-6.5); PLATELET COUNT 247 K/uL (130-400); RED CELL DISTRIBUTION WIDTH CV 14.8 % (11.5-14.5); RED CELL DISTRIBUTION WIDTH SD 53.2 fL (36.4-46.3); WHITE BLOOD COUNT 6.29 K/uL (4.8-10.8)
[2017-04-11 07:14] VITALS: BP 134/77; PULSE 76; TEMP 36.6; O2SAT 95
[2017-04-11 07:29] LABS: ALBUMIN 2.4 gm/dl (3.4-5.0); ALT/SGPT 95 U/L (12-78); AST/SGOT 94 U/L (15-37); BLOOD UREA NITROGEN 3 mg/dl (7-18); CALCIUM 8.6 mg/dl (8.5-10.1); CARBON DIOXIDE 24 mmol/L (21-32); CREATININE 0.22 mg/dl (0.60-1.20); GLUCOSE 89 mg/dl (70-99); POTASSIUM 3.6 mmol/L (3.5-5.1); SODIUM 135 mmol/L (136-145)
[2017-04-11 07:36] LABS: ALKALINE PHOSPHATASE 109 U/L (45-117); TOTAL PROTEIN 5.3 gm/dl (6.4-8.2)
[2017-04-11] MEDS: POTASSIUM CHLORIDE 10 MEQ TABCR PO SCH ×2 (08:04→20:16)
[2017-04-11] MEDS: PANTOprazole SOD 40 MG TAB PO SCH (08:04)
[2017-04-11] MEDS: BEER 1 CAN PO PRN ×2 (08:05→20:15)
[2017-04-11] MEDS: SULFAMETHOXAZOLE/TRIMETHOPRIM DS 800/160MG TAB PO SCH (08:05)
[2017-04-11] MEDS: OXYCODONE HCL IR 5 MG TAB (IMMEDIATE RELEASE) PO PRN ×2 (08:14→20:29)
--- NOTE | 2017-04-11 08:47 | Family Medicine Progress Note ---
Progress Note Date of Service Apr 11, 2017. Subjective Pt evaluation today including: conversation w/ patient, conversation w/ family , physical exam, chart review, lab review, review of studies, review of inpatient medication list Pain: denies PO Intake: adequate Voiding: overton catheter in place No acute events overnight. Patient denies abdominal pain. She does report rectal pain 7-8/10 with movement. She denies Chest pain, SOB. She denies urinary symptoms, suprapubic tenderness. Additional Comments: Constitutional: No fever, No chills, No weakness Respiratory: No cough, No sputum, No shortness of breath Cardiovascular: No chest pain, No edema, No palpitations Abdomen: No pain, No nausea, No vomiting Female : + problem reported (overton in place) Skin: No rash, No itch Medications Current Inpatient Medications Medications (Trade) Dose Ordered Sig/Jacqui Route Start Time Stop Time Status Last Admin Dose Admin Enoxaparin Sodium (Lovenox Inj) 40 mg Q24H SC 04/08/17 21:00 05/08/17 20:59 04/10/17 21:20 40 MG Sodium Chloride 1,000 ml @ 100 mls/hr Q10H IV 04/08/17 17:35 05/08/17 17:34 04/11/17 05:57 100 MLS/HR Al Hydrox/Mg Hydrox/Simethicone (Maalox Max Susp) 15 ml Q4H PRN PO 04/08/17 17:45 05/08/17 17:44 Magnesium Hydroxide (Milk Of Magnesia Susp) 30 ml Q12H PRN PO 04/08/17 17:45 05/08/17 17:44 Zolpidem Tartrate (Ambien Tab) 5 mg HSZ PRN PO 04/08/17 17:45 05/08/17 17:44 Polyethylene (Miralax Powder Packet) 17 gm DAILY PRN PO 04/08/17 17:45 05/08/17 17:44 Prednisone (PredniSONE TAB) 20 mg DAILY PO 04/09/17 09:00 05/09/17 08:59 04/11/17 08:05 20 MG Trimethoprim/ Sulfamethoxazole (Septra Ds 800/ 160MG Tab) 1 tab DAILY PO 04/09/17 09:00 04/19/17 08:59 04/11/17 08:05 1 TAB Lorazepam (Ativan Tab) 1 mg ONE PRN PO 04/08/17 17:45 Lorazepam (Ativan Inj) 1 mg ONE PRN IV 04/08/17 17:45 Oxycodone HCl (Roxicodone Immediate Rel Tab) 5 mg Q6H PRN PO 04/08/17 18:30 04/22/17 18:29 04/11/17 08:14 5 MG Chlordiazepoxide (Librium Cap) 10 mg Q8H PO 04/10/17 22:00 04/11/17 14:01 04/11/17 05:56 10 MG Chlordiazepoxide (Librium Cap) 5 mg Q12H PO 04/12/17 02:00 04/12/17 14:01 Lorazepam 1 mg/ Syringe 1 ml @ 1 mls/min UD PRN IV 04/08/17 23:30 05/08/17 23:29 04/09/17 07:52 1 MLS/MIN Potassium Chloride (Klor-Con M10) 10 meq BID PO 04/09/17 12:00 05/09/17 11:59 04/11/17 08:04 10 MEQ Non-Formulary Medication (Beer) 1 can Q4 PRN PO 04/09/17 14:15 05/09/17 14:14 04/11/17 08:05 1 CAN Enteral Nutritional Formula (Boost Plus Vanilla) 1 can ACHS PRN PO 04/09/17 14:15 05/09/17 14:14 04/09/17 14:24 1 CAN Pantoprazole Sodium (Protonix Tab) 40 mg QAM PO 04/10/17 08:00 05/10/17 07:59 04/11/17 08:04 40 MG Oxycodone HCl (Roxicodone Immediate Rel Tab) 10 mg Q6 PRN PO 04/10/17 18:30 04/24/17 18:29 Objective Vital Signs Date Time Temp Pulse Resp B/P (MAP) Pulse Ox O2 Delivery O2 Flow Rate FiO2 04/11/17 07:14 36.6 76 18 134/77 (96) 95 Room Air 04/10/17 23:00 Room Air 04/10/17 22:58 36.3 92 18 155/85 (108) 98 Room Air 04/10/17 16:00 Room Air 04/10/17 15:43 36.4 84 18 146/79 (101) 93 Room Air 04/10/17 14:45 95 Room Air 04/10/17 14:13 95 Room Air 04/10/17 11:45 85 20 161/84 (109) 97 Nasal Cannula 2.0 Physical Exam Notes: GENERAL: alert, NAD EYE EXAM: normal conjunctiva, PERRL and EOM's grossly intact OROPHARYNX: no exudate, no erythema, lips, buccal mucosa, Hairy tongue LUNGS: Clear to auscultation. Normal chest wall mechanics HEART: Systolic murmur, S1 normal and S2 normal ABDOMEN: abdomen soft, non-tender, normo-active bowel sounds, no masses, no rebound or guarding. LOWER EXTREMITIES: No pitting edema. NEURO EXAM: AOx3, cranial nerves II-XII grossly intact Laboratory Results Results Past 24 Hours Test 04/10/17 22:33 04/11/17 06:28 Range/Units Urine Color YELLOW Urine Appearance TURBID CLEAR Urine pH 8.0 4.5-7.5 Urine Specific [place] 1.009 1.000-1.030 Urine Protein NEG NEG Urine Glucose (UA) NEG NEG Urine Ketones NEG NEG Urine Occult Blood 1+ NEG Urine Nitrite POS NEG Urine Bilirubin NEG NEG Urine Urobilinogen NEG NEG Urine Leukocyte Esterase LARGE NEG Urine WBC (Auto) >30 0-5 /hpf Urine RBC (Auto) 0-4 0-4 /hpf Urine Hyaline Casts (Auto) 1-5 0-5 /lpf Urine Epithelial Cells (Auto) >30 0-5 /lpf Urine Bacteria (Auto) 2+ NEG Urine Yeast (Auto) . NONE PRSENT White Blood Count 6.29 4.8-10.8 K/uL Red Blood Count 3.52 4.2-5.4 M/uL Hemoglobin 11.4 12.0-16.0 g/dL Hematocrit 35.2 37-47 % Mean Corpuscular Volume 100.0 80-100 fL Mean Corpuscular Hemoglobin 32.4 25-34 pg Mean Corpuscular Hemoglobin Concent 32.4 32-36 g/dl Platelet Count 247 130-400 K/uL Mean Platelet Volume 9.5 7.4-10.4 fL Neutrophils (%) (Auto) 69.5 % Lymphocytes (%) (Auto) 11.0 % Monocytes (%) (Auto) 17.3 % Eosinophils (%) (Auto) 1.4 % Basophils (%) (Auto) 0.5 % Neutrophils # (Auto) 4.37 1.4-6.5 K/uL Lymphocytes # (Auto) 0.69 1.2-3.4 K/uL Monocytes # (Auto) 1.09 0.11-0.59 K/uL Eosinophils # (Auto) 0.09 0-0.5 K/uL Basophils # (Auto) 0.03 0-0.2 K/uL RDW Standard Deviation 53.2 36.4-46.3 fL RDW Coefficient of Variation 14.8 11.5-14.5 % Immature Granulocyte % (Auto) 0.3 % Immature Granulocyte # (Auto) 0.02 0.00-0.02 K/uL Sodium Level 135 136-145 mmol/L Potassium Level 3.6 3.5-5.1 mmol/L Chloride Level 105 98-107 mmol/L Carbon Dioxide Level 24 21-32 mmol/L Anion Gap 6.0 3-11 mmol/L Blood Urea Nitrogen 3 7-18 mg/dl Creatinine 0.22 0.60-1.20 mg/dl Est Creatinine Clear Calc Drug Dose 202.5 ml/min Estimated GFR () > 150.0 Estimated GFR (Non- 130.3 BUN/Creatinine Ratio 13.9 10-20 Random Glucose 89 70-99 mg/dl Calcium Level 8.6 8.5-10.1 mg/dl Phosphorus Level 2.6 2.5-4.9 mg/dl Total Bilirubin 0.6 0.2-1 mg/dl Aspartate Amino Transf (AST/SGOT) 94 15-37 U/L Alanine Aminotransferase (ALT/SGPT) 95 12-78 U/L Alkaline Phosphatase 109 45-117 U/L Total Protein 5.3 6.4-8.2 gm/dl Albumin 2.4 3.4-5.0 gm/dl Globulin 2.9 2.5-4.0 gm/dl Albumin/Globulin Ratio 0.8 0.9-2 Microbiology Results 04/10/17 Urine Culture - Final, Complete THREE TYPES OF ORGANISMS PRESENT, ALL... Assessment and Plan 66 yo F w/ Multiple Sclerosis, Rectal Cancer, Alcohol abuse, Chronic indwelling catheter on usp abx (Bactrim) for chronic uti presenting with abdominal/ rectal pain likely secondary to malignancy Abdominal Pain * likely secondary to malignancy * Pain controlled w/ Oxycodone * Continue to monitor Alcoholism * Continue PRN beer * patient refuses to reduce alcohol intake on d/c Hairy Tongue * secondary to poor dental hygiene * Continue dental care in house Rectal Cancer * Per Dr. Ritter's discussion with patient, decision made by family to not treat cancer * family has decided SNF on discharge as more appropriate * discharge pending placement Chronic UTI/Chronic Overton catheter * UA consistent with chronic UTI, patient asymptomatic of urinary symptoms, no suprapubic tenderness * UTI refectory to Bactrium not suspected at this time * Continue to monitor * Continue prophylactic Bactrim Multiple Sclerosis * stable * Continue Prednisone 20 mg daily Hypokalemia, Hypophosphatemia * resolved s/p K Phos supplementation * F/u electrolytes in AM DVT Prophylaxis * Lovenox Elevated LFT's * likely secondary to alcoholism * trending down * Continue to monitor Disposition * awaiting SNF placement, Hospice Resident Physician Supervision Note: I interviewed and examined the patient. Discussed with Dr. Duvall and agree with findings and plan as documented in the note. Any exceptions or clarifications are listed here: None Documented By: Lm Riya wants to go home, doesn't want cancer treated. has thought about it a lot and has arrived at this as her decision. unfortunately later case management informs me that has called and noted he cannot take care of her at home will apparently be SNF comfort care goal vitals noted nad frail appearing no discomfort no pallor or icterus rectal cancer, MS - comfort care abnormal UA - no SIRS no sx - likely chronic colonization not acute infection DVT proph - lovenox otherwise as above Continued [facility] stay due to: home environment unsafe for pt Discharge planning: residential facility Resident Tracking Resident Involvement: Resident Care Provided Care Provided: Adult Hospital Medicine
--- NOTE | 2017-04-11 12:45 | NUR ---
ID: Pt. AAOx4. Vital signs stable. NSS running at 100mL/hr. Pt. continues to complain of abdominal pain at times, medicated as needed. Pt. is waiting for palliative consult to make decisions regarding cancer treatment. To be DC home with services, date uncertain.
[2017-04-11 14:13] VITALS: BP 130/77; PULSE 101; TEMP 36.7; O2SAT 94
--- NOTE | 2017-04-11 16:11 | NUR ---
Lengthy conversation with patient and her today. explained that [facility] discharged them because patient continues to drink alcohol. They were able to provide an aide 5 days per week in the morning. Now, the only has [employer] Staff[employer] for caregivers (2 hours in the morning and 2 hours in the evening). He needs help and has dialysis 3 times per week. He cannot lift the patient after the patient falls. Patient has gotten weaker so he is asking for more help at home. Unfortunately, he cannot afford to pay for private duty. We talked about trying to find another hospice agency who can provide daily aides. Or we can have the patient go to [facility] or a fpc in [place]. They live across the [address] from [facility] and are familiar with it. Patient would not agree to a rehab placement. She wants to go home. Explained that it is not safe for her to go home until we can find more help. Will follow for discharge planning.
[2017-04-11] MEDS: ENOXAPARIN 40 MG/0.4 ML SYR SC SCH (20:28)
[2017-04-11 22:44] VITALS: BP 157/77; PULSE 83; TEMP 36.3; O2SAT 95
[2017-04-11] MEDS: ZOLPIDEM TARTRATE 5 MG TAB PO PRN (23:38)
[2017-04-12] MEDS: SODIUM CHLORIDE 0.9% 1000ML 1,000 ML IV SCH ×3 (00:57→18:47)
[2017-04-12] MEDS: BEER 1 CAN PO PRN ×5 (00:57→23:44)
[2017-04-12] MEDS: CHLORDIAZEPOXIDE 5MG Q12H DOSE PO SCH ×2 (03:12→14:27)
[2017-04-12] MEDS: OXYCODONE HCL IR 5 MG TAB (IMMEDIATE RELEASE) PO PRN ×4 (04:14→20:36)
[2017-04-12 07:28] VITALS: BP 138/81; PULSE 97; TEMP 36.2; O2SAT 94
[2017-04-12] MEDS: POTASSIUM CHLORIDE 10 MEQ TABCR PO SCH ×2 (07:53→20:37)
[2017-04-12] MEDS: SULFAMETHOXAZOLE/TRIMETHOPRIM DS 800/160MG TAB PO SCH (07:54)
[2017-04-12] MEDS: PANTOprazole SOD 40 MG TAB PO SCH (07:54)
[2017-04-12 08:40] LABS: ALBUMIN 2.5 gm/dl (3.4-5.0); ALT/SGPT 112 U/L (12-78); AST/SGOT 115 U/L (15-37); BLOOD UREA NITROGEN 2 mg/dl (7-18); CALCIUM 8.9 mg/dl (8.5-10.1); CARBON DIOXIDE 25 mmol/L (21-32); CREATININE 0.22 mg/dl (0.60-1.20); GLUCOSE 89 mg/dl (70-99); POTASSIUM 3.4 mmol/L (3.5-5.1); SODIUM 140 mmol/L (136-145)
[2017-04-12 08:42] LABS: ALKALINE PHOSPHATASE 104 U/L (45-117); PHOSPHORUS 2.8 mg/dl (2.5-4.9); TOTAL PROTEIN 5.6 gm/dl (6.4-8.2)
--- NOTE | 2017-04-12 11:58 | Family Medicine Progress Note ---
Progress Note Date of Service Apr 12, 2017. Subjective Pt evaluation today including: conversation w/ patient, conversation w/ family , physical exam, chart review, lab review, review of studies, review of inpatient medication list Pain: denies PO Intake: adequate Voiding: no voiding problems No acute events. Rectal pain persis though mils at rest. She reports regualr Bowel movements. She denied N/V, hematochezia, Additional Comments: Constitutional: No fever, No chills, No weakness Respiratory: No cough, No sputum, No shortness of breath Cardiovascular: No chest pain, No edema, No palpitations Abdomen: No pain, No nausea, No vomiting Female : + problem reported (overton in place) Skin: No rash, No itch Medications Current Inpatient Medications Medications (Trade) Dose Ordered Sig/Jacqui Route Start Time Stop Time Status Last Admin Dose Admin Enoxaparin Sodium (Lovenox Inj) 40 mg Q24H SC 04/08/17 21:00 05/08/17 20:59 04/11/17 20:28 40 MG Sodium Chloride 1,000 ml @ 100 mls/hr Q10H IV 04/08/17 17:35 05/08/17 17:34 04/12/17 10:40 100 MLS/HR Al Hydrox/Mg Hydrox/Simethicone (Maalox Max Susp) 15 ml Q4H PRN PO 04/08/17 17:45 05/08/17 17:44 Magnesium Hydroxide (Milk Of Magnesia Susp) 30 ml Q12H PRN PO 04/08/17 17:45 05/08/17 17:44 Zolpidem Tartrate (Ambien Tab) 5 mg HSZ PRN PO 04/08/17 17:45 05/08/17 17:44 04/11/17 23:38 5 MG Polyethylene (Miralax Powder Packet) 17 gm DAILY PRN PO 04/08/17 17:45 05/08/17 17:44 Prednisone (PredniSONE TAB) 20 mg DAILY PO 04/09/17 09:00 05/09/17 08:59 04/12/17 07:54 20 MG Trimethoprim/ Sulfamethoxazole (Septra Ds 800/ 160MG Tab) 1 tab DAILY PO 04/09/17 09:00 04/19/17 08:59 04/12/17 07:54 1 TAB Lorazepam (Ativan Tab) 1 mg ONE PRN PO 04/08/17 17:45 Lorazepam (Ativan Inj) 1 mg ONE PRN IV 04/08/17 17:45 Oxycodone HCl (Roxicodone Immediate Rel Tab) 5 mg Q6H PRN PO 04/08/17 18:30 04/22/17 18:29 04/11/17 08:14 5 MG Chlordiazepoxide (Librium Cap) 5 mg Q12H PO 04/12/17 02:00 04/12/17 14:01 04/12/17 03:12 5 MG Lorazepam 1 mg/ Syringe 1 ml @ 1 mls/min UD PRN IV 04/08/17 23:30 05/08/17 23:29 04/09/17 07:52 1 MLS/MIN Potassium Chloride (Klor-Con M10) 10 meq BID PO 04/09/17 12:00 05/09/17 11:59 04/12/17 07:53 10 MEQ Non-Formulary Medication (Beer) 1 can Q4 PRN PO 04/09/17 14:15 05/09/17 14:14 04/12/17 09:45 1 CAN Enteral Nutritional Formula (Boost Plus Vanilla) 1 can ACHS PRN PO 04/09/17 14:15 05/09/17 14:14 04/09/17 14:24 1 CAN Pantoprazole Sodium (Protonix Tab) 40 mg QAM PO 04/10/17 08:00 04/14/17 07:59 04/12/17 07:54 40 MG Oxycodone HCl (Roxicodone Immediate Rel Tab) 10 mg Q6 PRN PO 04/10/17 18:30 04/24/17 18:29 04/12/17 07:56 10 MG Objective Vital Signs Date Time Temp Pulse Resp B/P (MAP) Pulse Ox O2 Delivery O2 Flow Rate FiO2 04/12/17 08:00 Room Air 04/12/17 07:28 36.2 97 16 138/81 (100) 94 Room Air 04/12/17 00:30 Room Air 04/11/17 22:44 36.3 83 16 157/77 (103) 95 Room Air 04/11/17 16:10 Room Air 04/11/17 14:13 36.7 101 18 130/77 (94) 94 Room Air Physical Exam Notes: GENERAL: alert, NAD EYE EXAM: normal conjunctiva, PERRL and EOM's grossly intact OROPHARYNX: no exudate, no erythema, lips, buccal mucosa, Hairy tongue LUNGS: Clear to auscultation. Normal chest wall mechanics HEART: Systolic murmur, S1,S2 normal ABDOMEN: abdomen soft, non-tender, normo-active bowel sounds, no masses, no rebound or guarding. LOWER EXTREMITIES: No pitting edema. NEURO EXAM: AOx3, cranial nerves II-XII grossly intact Laboratory Results Results Past 24 Hours Test 04/12/17 07:44 Range/Units Sodium Level 140 136-145 mmol/L Potassium Level 3.4 3.5-5.1 mmol/L Chloride Level 108 98-107 mmol/L Carbon Dioxide Level 25 21-32 mmol/L Anion Gap 8.0 3-11 mmol/L Blood Urea Nitrogen 2 7-18 mg/dl Creatinine 0.22 0.60-1.20 mg/dl Est Creatinine Clear Calc Drug Dose 202.5 ml/min Estimated GFR () > 150.0 Estimated GFR (Non- 130.3 BUN/Creatinine Ratio 8.5 10-20 Random Glucose 89 70-99 mg/dl Calcium Level 8.9 8.5-10.1 mg/dl Phosphorus Level 2.8 2.5-4.9 mg/dl Magnesium Level 1.8 1.8-2.4 mg/dl Total Bilirubin 0.5 0.2-1 mg/dl Aspartate Amino Transf (AST/SGOT) 115 15-37 U/L Alanine Aminotransferase (ALT/SGPT) 112 12-78 U/L Alkaline Phosphatase 104 45-117 U/L Total Protein 5.6 6.4-8.2 gm/dl Albumin 2.5 3.4-5.0 gm/dl Globulin 3.1 2.5-4.0 gm/dl Albumin/Globulin Ratio 0.8 0.9-2 Assessment and Plan 66 yo F w/ Multiple Sclerosis, Rectal Cancer, Alcohol abuse, Chronic indwelling catheter on custodial abx (Bactrim) for chronic uti presenting with abdominal/ rectal pain likely secondary to malignancy Abdominal Pain * likely secondary to malignancy * Pain control w/ Oxycodone * Continue to monitor Alcoholism * Continue PRN beer * patient refuses to reduce alcohol intake on d/c Hairy Tongue * secondary to poor dental hygiene * Continue dental care in house Rectal Cancer * Per Dr. Ritter's discussion with patient, decision made by family to not treat cancer * patient and not in agreement on decision on whether to go home . patient would like to go home however is uncertain whether she can receive the care she needs there Chronic UTI/Chronic Overton catheter * UA consistent with chronic UTI, patient asymptomatic of urinary symptoms, no suprapubic tenderness * UTI refectory to Bactrim not suspected at this time * Continue to monitor * Continue prophylactic Bactrim Multiple Sclerosis * stable * Continue Prednisone 20 mg daily Hypokalemia, Hypophosphatemia * resolved s/p K Phos supplementation * F/u electrolytes in AM DVT Prophylaxis * Lovenox Elevated LFT's * likely secondary to alcoholism * trending down * Continue to monitor Disposition * possible SNF placement if patient agrees vs home, Hospice Resident Physician Supervision Note: I interviewed and examined the patient. Discussed with Dr. Duvall and agree with findings and plan as documented in the note. Any exceptions or clarifications are listed here: None Documented By: Lm Ritter feeling better better pain control. wants to go home. extensive discussions w pt's and R3 - might actually be able to go home with good pain control. palliative input appreciated vitals noted nad breathing unlabored no pallor or icterus rectal cancer - pain control, possibly home. does not want cancer treated. otherwise as above Continued [facility] stay due to: home environment unsafe for pt Discharge planning: uncertain Resident Tracking Resident Involvement: Resident Care Provided Care Provided: Adult Hospital Medicine
--- NOTE | 2017-04-12 13:30 | Palliative Care Consultation ---
Consultation Date of Consultation: Apr 12, 2017. Requesting Physician: Dr. Inman Attending Physician: Dr. Duvall, Dr. 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 Patient lives in [place] and usually doctors with [facility] in [place]. We have no records here, but apparently this rectal cancer was confirmed by biopsy that was done by GI. Patient had opted to not receive any treatment for the cancer and went home on hospice. Patient has some problems with chronic alcoholism, and was discharged from hospice due to noncompliance with safe care plan. She then presented to our ED with the above complaints and an ETOH level of 257. CT abd/pelvis showed rectal fat stranding and rectal mass, hepatic steatosis, and uterine fibroid. CXR showed no acute process. Lipase elevated-- likely pancreatitis from alcoholism. Upon admission, patient told the admitting physician that she did not know being on hospice meant she could not receive treatment for the cancer and was then saying she wanted to pursue treatment. Apparently after some discussion between primary medical service, patient, and , the patient again decided that she wanted to go home with hospice and did not want any treatment for the cancer. Palliative care is now consulted to assist with establishing goals of care and determine plan. In reviewing the chart, I noticed that patient's has some concerns about the patient being home alone while he goes to dialysis three times a week. They have 4 hours/day of private caregivers, but otherwise patient is along when he is not home. Patient drinks alcohol daily, is not able to care for herself. credit union manager met with the patient and her , patient refusing placement into SNF for rehab. told the shelter case manager that patient was discharged from hospice because they wanted her to stop drinking. I personally called the hospice agency and spoke with the executive vp. She stated that patient was drinking profusely, passing out in the home with no one was there with her, not letting the hospice staff in the home at times, noncompliant with their safety plan. Hospice attempted to have patient placed in SNF, she refused. Their hands were tied and were forced to discharge patient from their service. I met with the patient in room 412. She is awake, alert and oriented. Is a little forgetful. Patient states that she has "made her decision and is happy with it,"-- that she wants to go home with hospice. She says that someone can be with her 07/11 between her paid caregivers. I brought up the concerns about her being home alone while her is at dialysis-- she became a little defensive and listed all the people who she could call if she needed help. She confirmed that she does not want any further treatment for the cancer, just wants to go home. I attempted to call patient's , [place], with patient's permission. He did not answer so I left a message. Past Medical/Surgical History Medical History: Alcoholism Rectal cancer, untreated Multiple Sclerosis Autonomic bladder with indwelling Wagner catheter Recurrent UTI Chronic diarrhea Chronic pain Social History Smoking Status: Current Every Day Smoker History of Alcohol Use: Yes (recent 3 shots of whisky and beer for pain) Drug Use: none Marital Status: Occupation Status: retired Review of Systems Constitutional: + weakness, No fever, No chills ENT: No trouble swallowing Respiratory: No cough, No shortness of breath, No dyspnea at rest Cardiac: No chest pain, No edema Abdomen: + diarrhea, No pain, No nausea, No vomiting Female : No problem reported (has Wagner catheter) Psychiatric: No depression symptoms, No anxiety Allergies Coded Allergies: Codeine (Verified Allergy, Severe, SWELLING, DIFFICULTY SWALLOWING, ) Milk (Verified Allergy, Severe, CONGESTION,EYE SWELLING, DIFFICULTY SWALLOWING, 04/08/17) Iodinated Diagnostic Agents (Verified Allergy, Intermediate, RASH, ) Iodine (Verified Allergy, Intermediate, RASH, 04/09/17) Penicillins (Verified Allergy, Unknown, UNKNOWN, 04/08/17) Medications Current Inpatient Medications Medications (Trade) Dose Ordered Sig/Jacqui Route Start Time Stop Time Status Last Admin Dose Admin Enoxaparin Sodium (Lovenox Inj) 40 mg Q24H SC 04/08/17 21:00 05/08/17 20:59 04/11/17 20:28 40 MG Sodium Chloride 1,000 ml @ 100 mls/hr Q10H IV 04/08/17 17:35 05/08/17 17:34 04/12/17 10:40 100 MLS/HR Al Hydrox/Mg Hydrox/Simethicone (Maalox Max Susp) 15 ml Q4H PRN PO 04/08/17 17:45 05/08/17 17:44 Magnesium Hydroxide (Milk Of Magnesia Susp) 30 ml Q12H PRN PO 04/08/17 17:45 05/08/17 17:44 Zolpidem Tartrate (Ambien Tab) 5 mg HSZ PRN PO 04/08/17 17:45 05/08/17 17:44 04/11/17 23:38 5 MG Polyethylene (Miralax Powder Packet) 17 gm DAILY PRN PO 04/08/17 17:45 05/08/17 17:44 Prednisone (PredniSONE TAB) 20 mg DAILY PO 04/09/17 09:00 05/09/17 08:59 04/12/17 07:54 20 MG Trimethoprim/ Sulfamethoxazole (Septra Ds 800/ 160MG Tab) 1 tab DAILY PO 04/09/17 09:00 04/19/17 08:59 04/12/17 07:54 1 TAB Lorazepam (Ativan Tab) 1 mg ONE PRN PO 04/08/17 17:45 Lorazepam (Ativan Inj) 1 mg ONE PRN IV 04/08/17 17:45 Oxycodone HCl (Roxicodone Immediate Rel Tab) 5 mg Q6H PRN PO 04/08/17 18:30 04/22/17 18:29 04/11/17 08:14 5 MG Chlordiazepoxide (Librium Cap) 5 mg Q12H PO 04/12/17 02:00 04/12/17 14:01 04/12/17 03:12 5 MG Lorazepam 1 mg/ Syringe 1 ml @ 1 mls/min UD PRN IV 04/08/17 23:30 05/08/17 23:29 04/09/17 07:52 1 MLS/MIN Potassium Chloride (Klor-Con M10) 10 meq BID PO 04/09/17 12:00 05/09/17 11:59 04/12/17 07:53 10 MEQ Non-Formulary Medication (Beer) 1 can Q4 PRN PO 04/09/17 14:15 05/09/17 14:14 04/12/17 09:45 1 CAN Enteral Nutritional Formula (Boost Plus Vanilla) 1 can ACHS PRN PO 04/09/17 14:15 05/09/17 14:14 04/09/17 14:24 1 CAN Pantoprazole Sodium (Protonix Tab) 40 mg QAM PO 04/10/17 08:00 04/14/17 07:59 04/12/17 07:54 40 MG Oxycodone HCl (Roxicodone Immediate Rel Tab) 10 mg Q6 PRN PO 04/10/17 18:30 04/24/17 18:29 04/12/17 07:56 10 MG Physical Exam Date Time Temp Pulse Resp B/P (MAP) Pulse Ox O2 Delivery O2 Flow Rate FiO2 04/12/17 08:00 Room Air 04/12/17 07:28 36.2 97 16 138/81 (100) 94 Room Air 04/12/17 00:30 Room Air 04/11/17 22:44 36.3 83 16 157/77 (103) 95 Room Air 04/11/17 16:10 Room Air 04/11/17 14:13 36.7 101 18 130/77 (94) 94 Room Air General Appearance: no apparent distress, + pertinent finding (chronically ill appearing, deconditioned) ENT: hearing grossly normal Neck: supple, no JVD Respiratory: lungs clear, no respiratory distress, no accessory muscle use Cardiovascular: regular rate, rhythm, no edema, + normal peripheral pulses Abdomen: normal bowel sounds, non tender, soft 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iatric: alert, normal mood/affect, oriented x 3 Skin: normal color Laboratory Results Last 24 Hours Test 04/12/17 07:44 Sodium Level 140 mmol/L Potassium Level 3.4 mmol/L Chloride Level 108 mmol/L Carbon Dioxide Level 25 mmol/L Anion Gap 8.0 mmol/L Blood Urea Nitrogen 2 mg/dl Creatinine 0.22 mg/dl Est Creatinine Clear Calc Drug Dose 202.5 ml/min Estimated GFR () > 150.0 Estimated GFR (Non- 130.3 BUN/Creatinine Ratio 8.5 Random Glucose 89 mg/dl Calcium Level 8.9 mg/dl Phosphorus Level 2.8 mg/dl Magnesium Level 1.8 mg/dl Total Bilirubin 0.5 mg/dl Aspartate Amino Transf (AST/SGOT) 115 U/L Alanine Aminotransferase (ALT/SGPT) 112 U/L Alkaline Phosphatase 104 U/L Total Protein 5.6 gm/dl Albumin 2.5 gm/dl Globulin 3.1 gm/dl Albumin/Globulin Ratio 0.8 Assessment & Plan Palliative Performance Scale: 40 % Problem list: Abdominal pain- 2/2 today, improved Weakness Decreased PO intake- patient states she is not hungry or thirsty Alcoholism Elevated lipase- pancreatitis Rectal cancer Goals of care (Z51.5) Palliative care recs: -Patient is DNR/level 5 resuscitation. -Per patient, goal is for comfort and hospice care. Wants to go home, but there are safety concerns with her drinking to excess in the home when she is left alone. [facility] of aging in [place] has been involved- shelter case manager aware of this. -Patient should have 24/7 care in the home given her debilitated state and inability to get out of the home in an emergency. She wishes to continue smoking and drinking which she made apparent to the docs. -Need to speak with her to see what he is comfortable with and what their capabilities are. -Is on Roxicodone IR 5-10mg PO Q6h PRN pain. Has had three doses of 10mg (30mg) , and one dose of 5mg. This is a total of 52.5 oral morphine equivalent, which is about 5mg Q3h PRN of PO Roxanol if we wish to convert her to oral morphine. This is cheaper and easier for hospice. -Is on daily maintenance dose of Bactrim for the recurrent UTI. -Further recommendations to follow as we continue to work on DC planning. Thank you kindly for this consult. I will follow.
--- NOTE | 2017-04-12 15:14 | NUR ---
ID: Pt. AAOx4. Pt. continues to complain of pain and oxycodone is given with relief. VS stable. IV fluids infusing. Pt. is having tremors at times, beer given prn. Pt. adamant about returning home on hospice, but has concerns about providing care. Palliative care and protective services social worker following. Disposition uncertain.
[2017-04-12 15:28] VITALS: BP 156/82; PULSE 96; TEMP 36.2; O2SAT 94
--- NOTE | 2017-04-12 16:10 | NUR ---
A Note; NELLY scale performed at this time pt scored a 10; Pt agitated attempting to leave bed and yelling for ; Pt verbalizes she needs a beer; Informed pt she received last beer around 13:40 and will be available to get beer again around 17:40 this evening; pt with visible tremors noted; Pt verbalizes thinking she heard her in the kitchen reminded pt she is in the hospital; PRN Ativan administered
--- NOTE | 2017-04-12 17:10 | NUR ---
Referral sent to [facility] today. Talked with Little at [facility]. She can offer a bed to the patient. Talked with Palliative Care. wavering about placement. He is concerned that patient will not agree or she will lash out at him. Patient is accustomed to smoking and drinking at home whenever she feel like it. Patient is not eligible for Waiver Services because she is over income guidelines. The [facility] was referred by hospice because of the home situation. While patient's was at dialysis, she continued to drink and had falls. Hospice discharged the patient because she refused to consider SNF placement. Talked with attending. She talked with this afternoon. is willing to take patient home if pain is managed. Patient has been relying on alcohol to help with pain control. Attending will address patient's pain and hopefully, she will not continue to drink heavily. Will talk with another hospice agency about the patient.
--- NOTE | 2017-04-12 17:33 | NUR ---
Referral to Home Nursing Agency[facility] to see if they will accept the patient.
[2017-04-12] MEDS: ENOXAPARIN 40 MG/0.4 ML SYR SC SCH (20:37)
[2017-04-12 20:42] VITALS: BP 165/91; PULSE 86; TEMP 36.2; O2SAT 96
[2017-04-12] MEDS: LORAZEPAM INJ 1 MG in SYRINGE 0.5 ML IV PRN (21:03)
[2017-04-12 23:00] VITALS: BP 139/79; PULSE 95; TEMP 36.3; O2SAT 94
[2017-04-12] MEDS: ZOLPIDEM TARTRATE 5 MG TAB PO PRN (23:44)
[2017-04-13] MEDS: SODIUM CHLORIDE 0.9% 1000ML 1,000 ML IV SCH (04:59)
[2017-04-13] MEDS: OXYCODONE HCL IR 5 MG TAB (IMMEDIATE RELEASE) PO PRN (05:15)
[2017-04-13 07:26] VITALS: BP 135/82; PULSE 77; TEMP 36.6; O2SAT 95
[2017-04-13 08:00] VITALS: O2SAT 95
--- NOTE | 2017-04-13 08:00 | NUR ---
ID: Patient admitted with abdominal pain. Alert and oriented x 4 upon assessment. Complains of pain this AM- pain medication changed to scheduled Oxycontin PO Q12H. Also receiving Beer Q4H prn. Mild tremors noted this AM. IVF infusing as per order. VSS. Wagner patent. Refusing breakfast. Plans for SNF placement vs. home with hospice. Discharge date uncertain at this time.
[2017-04-13] MEDS ORDERED: GABAPENTIN 100 MG CAP PO ONE (09:00)
[2017-04-13] MEDS ORDERED: OXYCODONE HCL 10 MG TABCR (OXYCONTIN) PO SCH (09:00)
[2017-04-13] MEDS: SULFAMETHOXAZOLE/TRIMETHOPRIM DS 800/160MG TAB PO SCH (09:03)
[2017-04-13] MEDS: POTASSIUM CHLORIDE 10 MEQ TABCR PO SCH (09:03)
[2017-04-13] MEDS: PANTOprazole SOD 40 MG TAB PO SCH (09:03)
[2017-04-13] MEDS: BEER 1 CAN PO PRN ×2 (09:11→14:24)
[2017-04-13] MEDS ORDERED: NRN100 PO (11:50)
[2017-04-13] MEDS ORDERED: OXYSR10 PO (11:50)
[2017-04-13] MEDS ORDERED: RXC5 PO (11:50)
--- NOTE | 2017-04-13 12:06 | Discharge Instructions ---
Discharge Instructions Date of Service Apr 13, 2017. Admission Reason for Admission: Abdominal Pain Discharge Discharge Diagnosis / Problem: Abdominal Pain, Rectal Cancer Discharge Goals Goal(s): Decrease discomfort, Improve function, Increase independence, Improve disease control, Improve nutritional status, Learn about illness, Diagnostic testing, Therapeutic intervention, Screening, Prevent Disease Progression, Specific goals Activity Recommendations Activity Limitations: per Instructions/Follow-up section . Instructions / Follow-Up Instructions / Follow-Up You presented to the hospital due to pain stemming form your rectal cancer. You have elected to pursue Hospice care at home and that process of finding a suitable company is ongoing - Please take pain medication only as prescribed and do not distribute medication to anyone else. Please remember that with the use of narcotics/ pain medications this can make you very sleepy. We would like to reiterate that using alcohol with these medications can lead to unwanted side effects and worsening sedation. Please refrain from using ANY liquor or wine however the occasional beer is OK. - We will also be giving you a script for Gabapentin which is a medication which will help with pain however does have that super fast "fix" so please give it some time to metalsmith helper in control of the pain - Please take 1/2 cap daily Miralax available to prevent constipation which can be a side effect of the pain medication. NO laxatives as this can lead to a cycle of constipation/ diarrhea. This 1/2 cap of Miralax is to be taken daily to prevent constipation. If you find that you are going to the bathroom more frequently than once daily or you have very loose bowels it is OK to use 1/2 cap every other day. - Referral to Home Hospice Agency is pending. You will be contacted at home on the result of this. As we discussed this referral was placed however we are unsure of the results of the referral at this time. The bilingual patient support caseworker will continue to work with the agency to arrange at home Hospice. Please continue to work with the [facility] agency in the meantime. I would also consider having a helper come in during times of known absence of a coil maker such as when your is at dialysis. - You did very well without smoking in the hospital and continue to encourage to continue this at home - Please remember, YOUR SAFETY is our biggest priority and being aware that drinking in excess will make it difficult for the Hospice team to continue to work with you. We advise against this. - If you feel your pain is not controlled please contact primary care physician or home hospice services when available. Current Hospital Diet Patient's current hospital diet: Regular Diet Discharge Diet Recommended Diet: Regular Diet Pending Studies Studies pending at discharge: no Laboratory Results Hemoglobin A1c Test 04/09/17 05:18 Range/Units Estimated Average Glucose 91 mg/dl Hemoglobin A1c 4.8 4.5-5.6 % Lipid Panel Test 04/08/17 17:59 Range/Units Triglycerides Level 37 0-150 mg/dl Cholesterol Level 190 0-200 mg/dl HDL Cholesterol 131 mg/dl Cholesterol/HDL Ratio 1.5 LDL Cholesterol, Calculated 52 mg/dl Medical Emergencies . Who to Call and When: Medical Emergencies: If at any time you feel your situation is an emergency, please call 911 immediately. . Non-Emergent Contact Non-Emergency issues call your: Primary Care Provider Call Non-Emergent contact if: you have a fever, your pain is not controlled, your pain is worsening, your pain is unusual for you, your pain is concerning you, you have any medication questions . . "Provider Documentation" section prepared by Yosi Duvall. . VTE Core Measure Inpt VTE Proph given/why not?: Enoxaparin (Lovenox)SQ
--- NOTE | 2017-04-13 12:34 | NUR ---
As per attending, he talked with today. wants patient to come home. He called [employer] to restart caregivers. Talked with Home Nursing Agency/Family hosp[facility] today. They received the referral and have scheduled patient for SOC today. As per attending, patient is cleared for discharge to home today. Talked with Little from [facility] today. She talked with the patient about hospice at [facility]. Patient wants to go home with hospice services. Talked with Palliative Care about the plan. She talked with patient's today. He is OK with patient returning home. As per attending, patient is cleared for discharge today.
[2017-04-13 12:49] VITALS: BP 135/82; PULSE 77; TEMP 36.6; O2SAT 95
--- NOTE | 2017-04-13 16:24 | NUR ---
A: Patient discharged to home with . Patient and verbalized understanding of discharge instructions and prescriptions.
[2017-04-13] MEDS ORDERED: GABAPENTIN 100 MG CAP PO SCH (20:00)
--- NOTE | 2017-04-16 22:09 | Discharge Summary ---
Discharge Summary Date of Service Apr 13, 2017. Discharge Summary Admission Date: Apr 08, 2017 at 17:50 Discharge Date: Apr 13, 2017 Discharge Disposition: Home with services ([facility]) Principal Diagnosis: Abdominal Pain, Rectal Cancer Immunizations: Have You Had Influenza Vaccine: N/A History of Tetanus Vaccine?: Yes History of Pneumococcal: No History of Hepatitis B Vaccine: No Procedures: CHEST ONE VIEW PORTABLE HISTORY: Weakness. Short of breath. COMPARISON: None. FINDINGS: The heart is borderline enlarged. Mild diffuse interstitial thickening which may be chronic. Surgical within the right axilla. No focal lung consolidations to suggest pneumonia. No pleural effusions. No pneumothorax. The lungs are mildly hyperexpanded. IMPRESSION: Mild diffuse interstitial thickening which is likely chronic. No focal lung consolidations to suggest pneumonia. ] ABDOMEN AND PELVIS CT WITHOUT CONTRAST CT DOSE: 263.40 mGy.cm HISTORY: Lower abdominal pain. TECHNIQUE: Multiaxial CT images of the abdomen and pelvis were performed without contrast. A dose lowering technique was utilized adhering to the principles of ALARA. COMPARISON STUDY: None. FINDINGS: The lung bases are clear. No pneumoperitoneum. No pneumatosis. L4-5 posterior decompression and fusion with pedicle screws and rods. No suspicious lytic or blastic osseous lesions. Punctate density within the left hepatic lobe which may represent a small calcification. Hepatic steatosis with an area of focal fat adjacent to the whitney hepatis. Multiple small gallstones and gallbladder sludge. The unenhanced spleen, pancreas, and kidneys are unremarkable. Thickening within the body of the stomach is likely due to underdistention. No retroperitoneal lymphadenopathy. There is a Overton catheter within the bladder. Small focus of gas within the bladder is likely due to the catheterization. Partially calcified 6.2 cm homogeneous mass within the uterine fundus. This favors a fibroid. Moderate thickening of the rectum with perirectal fat stranding. There are few subcentimeter perirectal lymph nodes. There is also areas of abnormal soft tissue seen extending from the upper vagina to the perirectal space bilaterally. These are best seen on images 69 and 70 and favor engorged vascular structures from the adjacent inflammatory change. Moderate stool seen within the colon. No evidence for bowel obstruction. Normal appendix. An indeterminate 1.5 cm left adrenal gland nodule. Normal right adrenal gland. IMPRESSION: 1. Moderate rectal wall thickening with perirectal fat stranding. This consistent with a nonspecific proctitis. However, given the patient's age follow-up sigmoidoscopy is recommended to exclude the possibility of an underlying rectal mass. There are few subcentimeter perirectal lymph nodes which are nonspecific. 2. No evidence for bowel obstruction. 3. Cholelithiasis. 4. A 6.2 cm partially calcified mass within the uterine fundus. This likely represents a fibroid. 5. Normal appendix. 6. Hepatic steatosis. Consultations: Palliative Care Medication Reconciliation New Medications: Gabapentin (Gabapentin) 100 Mg Cap 100 MG PO BID for 30 Days, #60 CAP Oxycodone HCl (Oxycontin) 10 Mg Tabcr 10 MG PO Q12 for 30 Days, #60 TABS 0 Refills Oxycodone HCl (Oxycodone HCl) 5 Mg Tab 5 MG PO Q6H PRN for Breakthrough Pain for 30 Days, #120 TAB 0 Refills Continued Medications: Prednisone (Prednisone) 5 Mg Tab 20 MG PO DAILY Sulfa/Trimethoprim (Bactrim Ds 800MG/160MG) Tab 1 TAB PO DAILY Discharge Exam Constitutional: No fever, No chills, No weakness Respiratory: No cough, No sputum, No shortness of breath Cardiovascular: No chest pain, No edema, No palpitations Abdomen: No pain, No nausea, No vomiting Female : + problem reported (overton in place) Skin: No rash, No itch GENERAL: alert, NAD EYE EXAM: normal conjunctiva, PERRL and EOM's grossly intact OROPHARYNX: no exudate, no erythema, lips, buccal mucosa, Hairy tongue LUNGS: Clear to auscultation. Normal chest wall mechanics HEART: Systolic murmur, S1,S2 normal ABDOMEN: abdomen soft, non-tender, normo-active bowel sounds, no masses, no rebound or guarding. LOWER EXTREMITIES: No pitting edema. NEURO EXAM: AOx3, cranial nerves II-XII grossly intact Hospital Course H&P 66 years old female smoker with Multiple Sclerosis, autonomic bladder from MS S /P indwelling Overton with recurrent UTI, lower back pain, untreated rectal cancer and alcohol abuse, presented to the ED with progressive lower abdominal pain for the past few days. Patient has been on hospice at home. She and her claimed that they did not know that hospice means not to treat the cancer. They had a miscommunication with [facility] that was handling her rectal cancer (chemotherapy/radiation was suggested but patient wanted surgery). She and her now want to pursue treatment her cancer. they think that her lower abdominal pain is from attirbuted to the cancer.Due to her progressive chronic pain she started to drink alcohol every day. On arrival, alcohol level was 257. She also has recurrent UTI responding to cipro IV not oral. She is currently on Bactrim once a day for suppression. She also reports chronic diarrhea, tremors. After some discussion between primary medical service, patient, and , the patient again decided that she wanted to go home with hospice and did not want any treatment for the cancer. Hospital Course Abdominal Pain: attributed to cancer although constipation, UTI vs Proctitis (Ct abdomen finding) were considered Patient was afebrile, Vital signs stable with no leukocytosis Pain adequately controlled with Oxycodone 5mg Q6H Alcoholism: After discussion with patient it was determined patient would not attempt to reduce alcohol intake. Patient placed on beer Q4 PRN for agitation. Diarrrhea occurred prior to arrival stool C diff negative, Stool cultures negative Abnormal UA chronic overton in place due to autonomic bladder dysfunction multiple organisms on UA possibly secondary to contamination Rectal Cancer confirmed on biopsy prior to arrival according to patient Patient elected to refuse treatment Patient declined Oncology or GI consult. Palliative care consulted Elected for Hospice care on discharge Chronic UTIs in setting of Chronic Indwelling Overton Catheter. On prophylactic regimen Bactrim at home, continued in hospital Hairy Tongue secondary to poor dental hygiene Started dental care in house Hypokalemia, Hypophosphatemia resolved with supplementation Multiple Sclerosis Continued 20mg daily Prednisone. DVT Proph: Lovenox Daily SQ Disposition: Discharged with Home Hospice Resident Physician Supervision Note: I interviewed and examined the patient. Discussed with Dr. Duvall and agree with findings and plan as documented in the note. Any exceptions or clarifications are listed here: None Documented By: Lm Ritter ready to go home is OK to take her now that her pain is better controlled vitals noted nad breathing unlabored no pallor or icterus pain - improved control, stable for home. home w as above, palliative goals Total Time Spent: Less than 30 minutes This includes examination of the patient, discharge planning, medication reconciliation, and communication with other providers. Discharge Instructions Please refer to the electronic Patient Visit Report (Discharge Instructions) for additional information. Resident Tracking Resident Involvement: Resident Care Provided Care Provided: Adult [facility]
== END 2017-04-13 16:25 | disposition hospice, home (50) | DRG 375 ==
LOC: C.EDB 14:06 → C.MED 17:50 → ENRESERV 18:22 → C.4E 04-09 15:52
PROVIDERS: ADMIT Internal Medicine; ATTEND Family Medicine
DX: C19 Malignant neoplasm of rectosigmoid junction (principal); N39.0 Urinary tract infection, site not specified; T83.518A Infection and inflammatory reaction due to other urinary catheter, initial encounter; F10.239 Alcohol dependence with withdrawal, unspecified; G35 Multiple sclerosis; F17.200 Nicotine dependence, unspecified, uncomplicated; N31.2 Flaccid neuropathic bladder, not elsewhere classified; R19.7 Diarrhea, unspecified; K14.3 Hypertrophy of tongue papillae; E87.6 Hypokalemia; E83.39 Other disorders of phosphorus metabolism; Z51.5 Encounter for palliative care; Z66 Do not resuscitate; Z79.52 Long term (current) use of systemic steroids; Z88.0 Allergy status to penicillin; Z88.6 Allergy status to analgesic agent; Z91.041 Radiographic dye allergy status